=== PATIENT | female | born 1990 | race Caucasian/White ===

== ENCOUNTER 2016-04-20 16:07 | Outpatient (CLI) | payer MEDICAID ==
[2016-04-20] MEDS ORDERED: RINGERS SOLUTION,LACTATED 300 ML IV ONE (16:13)
[2016-04-20] MEDS ORDERED: OXYTOCIN/NORMAL SALINE 1,000 ML IV PRN (16:13)
[2016-04-20] MEDS ORDERED: RINGERS SOLUTION,LACTATED 1,000 ML IV PRN (16:13)
[2016-04-20 16:35] LABS: APPEARANCE,URINE TURBID; BILIRUBIN,URINE NEGATIVE (NEGATIVE); GLUCOSE, URINE NEGATIVE (NEGATIVE); KETONES,URINE NEGATIVE (NEGATIVE); LEUKOCYTE ESTERASE,URINE LARGE (NEGATIVE); NITRITE,URINE NEGATIVE (NEGATIVE); PROTEIN,URINE NEGATIVE (NEGATIVE); URINE SPECIFIC GRAVITY 1.014; UROBILINOGEN,URINE NEGATIVE mg/dL (<2.0)
[2016-04-20 16:55] LABS: URINE BARBITURATES SCREEN NEGATIVE; URINE METHADONE SCREEN NEGATIVE; URINE OPIATES LOW NEGATIVE; URINE PHENCYCLIDINE SCREEN NEGATIVE
--- NOTE | 2016-04-20 17:01 | Non Stress Test Report ---
Non Stress Test Datetime Report Generated by CPN: 04/20/2016 17:01 INDICATION Indication for Study: Ordered by Provider MONITORING Monitor Explained: Monitor Explained; Test Explained; Patient Verbalized Understanding Time on Monitor: 04/20/2016 16:17 Time off Monitor: 04/20/2016 16:55 NST Duration: 38 NST INTERVENTIONS NST Interventions: PO Hydration; Reposition Patient Physician Notified NST: H Kanu CNM BABY A: [id number] BABY A Movement : Present Contraction Frequency : none/ pt denies FHR Baseline : 140 Accelerations : 15X15 Decelerations : None Variability : Moderate 6-25bpm NST Review: Meets Criteria for Reactive NST NST Review and Verified By : Tierra Ospina RN NST Results: Reactive NST REPORT Report Trigger: Send Report
== END 2016-04-20 17:03 | disposition home or self-care (01) ==
LOC: LC 16:07
PROVIDERS: ATTEND Obstetrics & Gynecology
PROC: 4A1HXCZ Monitoring of Products of Conception, Cardiac Rate, External Approach (ICD-10-PCS; principal; 2016-04-20)
DX: O14.93 Unspecified pre-eclampsia, third trimester (principal); Z3A.39 39 weeks gestation of pregnancy
CPT/HCPCS: 59025; 80307; 81005

== ENCOUNTER 2016-04-29 22:10 | Inpatient (IN) | payer MEDICAID ==
[2016-04-29] MEDS ORDERED: ACETAMINOPHEN 325 MG TABLET PO PRN (22:39)
[2016-04-29] MEDS ORDERED: ZOLPIDEM TARTRATE 5 MG TABLET PO PRN (22:39)
[2016-04-29] MEDS ORDERED: MAG HYDROX/AL HYDROX/SIMETH SUSP 30 ML UDCUP PO PRN (22:39)
[2016-04-29] MEDS ORDERED: OXYTOCIN/NORMAL SALINE 20 UNIT/1,000 ML RTUINJ IV PRN (22:39)
[2016-04-29] MEDS ORDERED: RINGERS SOLUTION,LACTATED 300 ML IV ONE (22:39)
[2016-04-29] MEDS ORDERED: DINOPROSTONE 10 MG VAGINAL INSERT.SR PV ONE (22:39)
[2016-04-29 22:58] LABS: ABSOLUTE EOSINOPHILS # (AUTO) 0.2 10^3/uL (0.0-0.6); ABSOLUTE LYMPHOCYTES (AUTO) 2.2 10^3/uL (0.5-4.7); ABSOLUTE MONOCYTES (AUTO) 0.6 10^3/uL (0.1-1.4); ABSOLUTE NEUT (AUTO) 7.4 10^3/uL (1.7-8.2); BASOPHILS % (AUTO) 0.2 % (0-2); EOSINOPHILS % (AUTO) 2.3 % (0-6); HEMATOCRIT 32.1 % (36.0-47.0); HEMOGLOBIN 10.8 g/dL (12.0-15.5); HGB HCT DIFFERENCE 0.3; LYMPHOCYTES % (AUTO) 20.9 % (13-45); MEAN CORPUSCULAR HEMOGLOBIN 28.9 pg (27.0-33.4); MEAN CORPUSCULAR HGB CONC 33.8 g/dL (32.0-36.0); MEAN CORPUSCULAR VOLUME 86 fl (80-97); MONOCYTES % (AUTO) 5.3 % (3-13); RED BLOOD COUNT 3.75 10^6/uL (3.72-5.28); RED CELL DISTRIBUTION WIDTH 14.3 % (11.5-14.0); SEGMENTED NEUTROPHILS % (AUTO) 71.3 % (42-78); WHITE BLOOD COUNT 10.4 10^3/uL (4.0-10.5)
[2016-04-29 23:20] LABS: APPEARANCE,URINE CLOUDY; BILIRUBIN,URINE NEGATIVE (NEGATIVE); GLUCOSE, URINE NEGATIVE (NEGATIVE); KETONES,URINE NEGATIVE (NEGATIVE); LEUKOCYTE ESTERASE,URINE LARGE (NEGATIVE); NITRITE,URINE NEGATIVE (NEGATIVE); PROTEIN,URINE NEGATIVE (NEGATIVE); URINE SPECIFIC GRAVITY 1.011; UROBILINOGEN,URINE NEGATIVE mg/dL (<2.0)
[2016-04-29] MEDS ORDERED: CEPHALEXIN 500 MG CAPSULE PO SCH (23:45)
[2016-04-29] MEDS ORDERED: ESCITALOPRAM OXALATE 10 MG TABLET PO SCH (23:45)
[2016-04-29 23:47] LABS: URINE BARBITURATES SCREEN NEGATIVE; URINE METHADONE SCREEN NEGATIVE; URINE OPIATES LOW NEGATIVE; URINE PHENCYCLIDINE SCREEN NEGATIVE
[2016-04-30] MEDS: RINGERS SOLUTION,LACTATED 1,000 ML IV PRN ×2 (00:03→03:22)
[2016-04-30] MEDS ORDERED: CEPHALEXIN 500 MG CAPSULE ONE (00:53)
[2016-04-30] MEDS ORDERED: MAG HYDROX/AL HYDROX/SIMETH SUSP 30 ML UDCUP ONE (00:54)
[2016-04-30] MEDS ORDERED: DINOPROSTONE 10 MG VAGINAL INSERT.SR ONE (00:54)
[2016-04-30] MEDS ORDERED: ZOLPIDEM TARTRATE 5 MG TABLET ONE (00:54)
--- NOTE | 2016-04-30 08:01 | L&D Flow Sheet ---
LD Flowsheet Datetime Report Generated by CPN: 04/30/2016 08:00 Datetime: 04/30/2016 07:00 Stage of : Antepartum (Noris Watkins, RN) Monitor Mode: External (Noris Watkins, RN) Frequency (min): none (Noris Watkins, RN) Quality: Mild (Noris Watkins, RN) Resting Tone (Palpate): Relaxed (Noris Watkins, RN) Monitor Mode: External US (Noris Watkins, RN) FHR Baseline Rate : 135 (Noris Watkins, RN) Variability: Moderate 6-25 bpm (Noris Watkins, RN) Accelerations: 15X15 (Noris Watkins, RN) Comments: UTD if deels are present during broken strip (Noris Watkins, RN) Pain Coping: Sleeping (Noris Watkins, RN) Communication: RN at Bedside; RN Reviewed Strip (Noris Watkins, RN) Datetime: 04/30/2016 06:47 Monitor Interventions for FHR: Ultrasound Adjusted (Noris Watkins, RN) Comments: RN at bedside adjusting FHR monitor (Noris Watkins, RN) Datetime: 04/30/2016 06:30 Stage of : Antepartum (Noris Watkins, RN) Respirations: 18 (Noris Watkins, RN) Monitor Mode: External (Noris Watkins, RN) Frequency (min): irritability (Noris Watkins, RN) Quality: Mild (Noris Watkins, RN) Resting Tone (Palpate): Relaxed (Noris Watkins, RN) Monitor Mode: External US (Noris Watkins, RN) FHR Baseline Rate : 130 (Noris Watkins, RN) Variability: Minimal - Undetectable to <=5 bpm (Noris Watkins, RN) Accelerations: 15X15 (Noris Watkins, RN) Decelerations: None (Noris Watkins, RN) Pain Scale: 2 (Noris Watkins, RN) Pain Presence: Intermittent (Noris Watkins, RN) Pain Type: Cramping (Noris Watkins, RN) Pain Location: Abdomen (Noris Watkins, RN) Pain Goal: 1 (Noris Watkins RN) Pain Relief Measures: Comfort Measures (Noris Watkins RN) Pain Coping: Talking Through Contractions (Noris Watkins RN) Comfort Measures: Breathing/Relaxation; Family Support (Noris Watkins RN) Communication: RN at Bedside; RN Reviewed Strip (Noris Watkins RN) LaborFlag: Antepartum (QS system process) Datetime: 04/30/2016 06:06 I/O Interventions: Up to BR (Noris Watkins RN) Datetime: 04/30/2016 06:00 Stage of : Antepartum (Noris Watkins RN) Monitor Mode: External (Noris Watkins RN) Frequency (min): none (Noris Watkins RN) Monitor Mode: External US (Noris Watkins RN) FHR Baseline Rate : 125 (Noris Watkins RN) Variability: Moderate 6-25 bpm (Noris Watkins RN) Accelerations: 15X15 (Noris Watkins RN) Decelerations: None (Noris Watkins, RN) Communication: RN at Bedside; RN Reviewed Strip (Noris Watkins, RN) Datetime: 04/30/2016 05:39 NBP Sys/Jasmine/Mean (mmHg): 121 (QS system process) : 78 (QS system process) : 95 (QS system process) Pulse: 86 (QS system process) LaborFlag: Antepartum (QS system process) Datetime: 04/30/2016 05:30 Stage of : Antepartum (Noris Watkins, RN) Monitor Mode: External (Noris Watkins, RN) Frequency (min): irritability (Noris Watkins, RN) Quality: Mild (Noris Watkins, RN) Monitor Mode: External US (Noris Watkins, RN) FHR Baseline Rate : 130 (Noris Watkins, RN) Variability: Moderate 6-25 bpm (Noris Watkins, RN) Accelerations: 15X15 (Noris Watkins, RN) Decelerations: None (Noris Watkins, RN) Communication: RN at Bedside; RN Reviewed Strip (Noris Watkins, RN) Datetime: 04/30/2016 05:14 I/O Interventions: Up to BR (Noris Wtakins, RN) Datetime: 04/30/2016 05:00 Stage of : Antepartum (Noris Watkins, RN) Respirations: 18 (Noris Watkins, RN) Monitor Mode: External (Noris Watkins, RN) Frequency (min): irregular (Noris Watkins, RN) Quality: Mild (Noris Watkins, RN) Duration (sec): 70-120 (Noris Watkins, RN) Duration Criteria: Less than Two 120 Second Contractions (Noris Watkins, RN) Pattern: Normal: <= 5 Contractions in 10 Minutes (Noris Watkins, RN) Monitor Mode: External US (Noris Watkins, RN) FHR Baseline Rate : 130 (Noris Watkins, RN) Variability: Moderate 6-25 bpm (Noris Watkins, RN) Accelerations: 15X15 (Noris Watkins, RN) Decelerations: None (Noris Watkins, RN) Pain Scale: 2 (Noris Watkins RN) Pain Presence: Intermittent (Noris Watkins RN) Pain Type: Cramping (Noris Watkins RN) Pain Location: Abdomen (Noris Watkins RN) Pain Goal: 1 (Noris Watkisn RN) Pain Relief Measures: Comfort Measures (Noris Watkins RN) Pain Coping: Talking Through Contractions (Noris Watkins RN) Comfort Measures: Breathing/Relaxation; Family Support (Noris Watkins RN) Communication: RN at Bedside; RN Reviewed Strip (Noris Watkins RN) LaborFlag: Antepartum (QS system process) Datetime: 04/30/2016 04:30 Stage of : Antepartum (Noris Watkins RN) Monitor Mode: External (Noris Watkins RN) Frequency (min): irregular (Noris Watkins RN) Quality: Mild (Noris Watkins RN) Duration (sec): 90-120 (Noris Watkins RN) Pattern: Normal: <= 5 Contractions in 10 Minutes (Noris Watkins RN) Monitor Mode: External US (Noris Watkins RN) FHR Baseline Rate : 130 (Noris Watkins RN) Variability: Moderate 6-25 bpm (Noris Watkins RN) Accelerations: 15X15 (Noris Watkins RN) Comments: UTD if decels present during broken tracing (Noris Watkins RN) Communication: RN at Bedside; RN Reviewed Strip (Noris Watkins RN) Datetime: 04/30/2016 04:25 Monitor Interventions for FHR: Ultrasound Adjusted (Noris Watkins, RN) Comments: Rn adjusting FHR monitor (Noris Watkins, RN) Communication: RN at Bedside (Noris Watkins, RN) Datetime: 04/30/2016 04:00 Stage of : Antepartum (Noris Watkins, RN) Monitor Mode: External (Noris Watkins, RN) Frequency (min): irregular (Noris Watkins, RN) Quality: Mild (Noris Watkins, RN) Duration (sec): 60-90 (Noris Watkins, RN) Resting Tone (Palpate): Relaxed (Noris Watkins, RN) Monitor Mode: External US (Noris Watkins, RN) FHR Baseline Rate : 125 (Noris Watkins, RN) Variability: Minimal - Undetectable to <=5 bpm (Noris Watkins, RN) Accelerations: 15X15 (Noris Watkins, RN) Decelerations: None (Noris Watkins, RN) Communication: RN at Bedside; RN Reviewed Strip (Noris Watkins, RN) Datetime: 04/30/2016 03:30 Stage of : Antepartum (Noris Watkins, RN) Respirations: 18 (Noris Watkins, RN) Monitor Mode: External (Noris Watkins, RN) Frequency (min): irregular (Noris Watkins, RN) Quality: Mild (Noris Watkins, RN) Duration (sec): 70 (Noris Watkins, RN) Pattern: Normal: <= 5 Contractions in 10 Minutes (Noirs Watkins RN) Resting Tone (Palpate): Relaxed (Noris Watkins, RN) Monitor Mode: External US (Noris Watkins, RN) FHR Baseline Rate : 130 (Noris Watkins, RN) Variability: Moderate 6-25 bpm (Noris Watkins, RN) Accelerations: 15X15 (Noris Watkins, RN) Comments: UTD if decels present during broken strip (Noris Watkins, FREDRICK) Pain Scale: 1 (Noris Watkins RN) Pain Presence: Intermittent (Noris Watkins RN) Pain Type: Cramping (Noris Watkins RN) Pain Location: Abdomen (Noris Watkins, RN) Pain Relief Measures: Comfort Measures (Noris Watkins RN) Pain Coping: Talking Through Contractions (Noris Watkins RN) Comfort Measures: Breathing/Relaxation; Family Support (Noris Watkins RN) Communication: RN at Bedside; RN Reviewed Strip (Noris Watkins RN) LaborFlag: Antepartum (QS system process) Datetime: 04/30/2016 03:23 I/O Interventions: Up to BR (Noris Watkins, RN) Datetime: 04/30/2016 03:22 IV/Blood Work: New IV Bag Hung (Noris Watkins, RN) Datetime: 04/30/2016 03:07 NBP Sys/Jasmine/Mean (mmHg): 117 (QS system process) : 61 (QS system process) : 82 (QS system process) Pulse: 95 (QS system process) LaborFlag: Antepartum (QS system process) Datetime: 04/30/2016 03:00 Stage of : Antepartum (Noris Watkins, RN) Monitor Mode: External (Noris Watkins, RN) Frequency (min): x1 (Noris Watkins, RN) Quality: Mild (Noris Watkins, RN) Duration (sec): 90 (Noris Watkins, RN) Resting Tone (Palpate): Relaxed (Noris Watkins, RN) Monitor Mode: External US (Noris Watkins, RN) FHR Baseline Rate : 130 (Noris Watkins, RN) Variability: Moderate 6-25 bpm (Noris Watkins, RN) Accelerations: 15X15 (Noris Watkins, RN) Decelerations: None (Noris Watkins, RN) Communication: RN at Bedside; RN Reviewed Strip (Noris Watkins, RN) Datetime: 04/30/2016 02:37 NBP Sys/Jasmine/Mean (mmHg): 112 (QS system process) : 66 (QS system process) : 83 (QS system process) Pulse: 94 (QS system process) LaborFlag: Antepartum (QS system process) Datetime: 04/30/2016 02:30 Stage of : Antepartum (Noris Watkins, RN) Monitor Mode: External (Noris Watkins, RN) Frequency (min): x1 (Noris Watkins, RN) Quality: Mild (Noris Watkins, RN) Duration (sec): 90 (Noris Watkins, RN) Pattern: Normal: <= 5 Contractions in 10 Minutes (Noris Watkins, RN) Monitor Mode: External US (Noris Watkins, RN) FHR Baseline Rate : 120 (Noris Watkins, RN) Variability: Moderate 6-25 bpm (Noris Watkins, RN) Accelerations: 15X15 (Noris Watkins, RN) Decelerations: None (Noris Watkins, RN) Communication: RN Reviewed Strip (Noris Watkins, RN) Datetime: 04/30/2016 02:08 NBP Sys/Jasmine/Mean (mmHg): 116 (QS system process) : 71 (QS system process) : 87 (QS system process) Pulse: 95 (QS system process) LaborFlag: Antepartum (QS system process) Datetime: 04/30/2016 02:00 Stage of : Antepartum (Noris Watkins, RN) Respirations: 16 (Noris Watkins, RN) Monitor Mode: External (Noris Watkins, RN) Frequency (min): irregular (Noris Watkins, RN) Quality: Mild (Noris Watkins, RN) Duration (sec): 90 (Noris Watkins, RN) Pattern: Normal: <= 5 Contractions in 10 Minutes (Noris Watkins, RN) Monitor Mode: External US (Noris Watkins, RN) FHR Baseline Rate : 125 (Noris Watkins, RN) Variability: Moderate 6-25 bpm (Noris Watkins, RN) Accelerations: 15X15 (Noris Watkins, RN) Decelerations: None (Noris Watkins, RN) Pain Coping: Sleeping (Noris Watkins, RN) Communication: RN at Bedside; RN Reviewed Strip (Noris Watkins, RN) LaborFlag: Antepartum (QS system process) Datetime: 04/30/2016 01:37 NBP Sys/Jasmine/Mean (mmHg): 112 (QS system process) : 67 (QS system process) : 84 (QS system process) Pulse: 92 (QS system process) LaborFlag: Antepartum (QS system process) Datetime: 04/30/2016 01:30 Stage of : Antepartum (Noris Watkins, RN) Monitor Mode: External (Noris Watkins, RN) Frequency (min): irregular (Noris Watkins, RN) Quality: Mild (Noris Watkins, RN) Duration (sec): 120-180 (Noris Watkins, RN) Pattern: Normal: <= 5 Contractions in 10 Minutes (Noris Watkins, RN) Monitor Mode: External US (Noris Watkins, RN) FHR Baseline Rate : 130 (Noris Watkins, RN) Variability: Moderate 6-25 bpm (Noris Watkins, RN) Accelerations: 15X15 (Noris Watkins, RN) Communication: RN at Bedside; RN Reviewed Strip (Noris Watkins, RN) Datetime: 04/30/2016 01:13 Cervical Ripening Agents: Cervidil (Noris Watkins, RN) Datetime: 04/30/2016 01:09 Comments: tracing maternal HR, RN at bedside (Noris Watkins, RN) Analgesics/Sedatives: Ambien (mg) @ 10 (Noris Watkins, RN) Antibiotics: Other Antibiotic @ 500mg Keflex PO (Noris Watkins, RN) Antiemetics/Antacids: Maalox PO (ml) @ 30 (Noris Watkins, RN) Medication Comments: 10 mg Lexapro given PO per Dr Ricci order (Noris Watkins, RN) Datetime: 04/30/2016 01:03 I/O Interventions: Up to BR (Noris Watkins, RN) Datetime: 04/30/2016 01:00 Stage of : Antepartum (Noris Watkins, RN) Monitor Mode: External (Noris Watkins, RN) Frequency (min): irritability (Noris Watkins, RN) Resting Tone (Palpate): Relaxed (Noris Watkins, RN) Monitor Mode: External US (Noris Watkins, RN) FHR Baseline Rate : 135 (Noris Watkins, RN) Variability: Moderate 6-25 bpm (Noris Watkins, RN) Accelerations: 15X15 (Noris Watkins, RN) Decelerations: None (Noris Watkins, RN) Communication: RN Reviewed Strip (Noris Watkins, RN) Datetime: 04/30/2016 00:37 NBP Sys/Jasmine/Mean (mmHg): 104 (QS system process) : 55 (QS system process) : 77 (QS system process) Pulse: 82 (QS system process) LaborFlag: Antepartum (QS system process) Datetime: 04/30/2016 00:30 Stage of : Antepartum (Noris Watkins, RN) Respirations: 18 (Noris Watkins, RN) Monitor Mode: External (Noris Watkins, RN) Frequency (min): x1 (Noris Watkins, RN) Quality: Mild (Noris Watkins, RN) Duration (sec): 90 (Noris Watkins, RN) Resting Tone (Palpate): Relaxed (Noris Watkins, RN) Monitor Mode: External US (Noris Watkins, RN) Monitor Interventions for FHR: Ultrasound Adjusted (Noris Watkins, RN) FHR Baseline Rate : 120 (Noris Watkins, RN) Variability: Moderate 6-25 bpm (Noris Watkins, RN) Accelerations: 15X15 (Noris Watkins, RN) Pain Scale: 1 (Noris Watkins, RN) Pain Presence: Intermittent (Noris Watkins, RN) Pain Type: Cramping (Noris Watkins, RN) Pain Location: Abdomen (Noris Watkins, RN) Communication: RN at Bedside; RN Reviewed Strip (Noris Watkins, RN) LaborFlag: Antepartum (QS system process) Datetime: 04/30/2016 00:26 Monitor Interventions for FHR: Ultrasound Adjusted (Noris Watkins, RN) Datetime: 04/30/2016 00:06 Pain Scale: 1 (Noris Watkins, RN) Pain Presence: Intermittent (Noris Watkins, RN) Pain Type: Cramping (Noris Watkins, RN) Pain Location: Abdomen (Noris Watkins, RN) Pain Goal: 1 (Noris Watkins, RN) Pain Relief Measures: Comfort Measures (Noris Watkins, RN) Vaginal Bleeding: None (Noris Watkins, RN) Level of Consciousness: Fully Conscious (Noris Watkins, RN) DTR's/Clonus: DTRs 1+; No Clonus (Noris Watkins, RN) Headache: Denies (Noris Watkins, RN) Breath Sounds, Left: Clear and Equal (Noris Watkins, RN) Breath Sounds, Right: Clear and Equal (Noris Watkins, RN) Nausea/Vomiting: Present (Annotations: slight nausea) (Noris Watkins, RN) RUQ Epigastric Pain: Denies (Noris Watkins, RN) LaborFlag: Antepartum (QS system process) Datetime: 04/30/2016 00:00 Stage of : Antepartum (Noris Watkins, RN) Monitor Mode: External (Noris Watkins, RN) Frequency (min): irregular (Noris Watkins, RN) Quality: Mild (Noris Watkins RN) Duration (sec): 60-90 (Noris Watkins RN) Resting Tone (Palpate): Relaxed (Noris Watkins RN) Monitor Mode: External US (Noris Watkins RN) Monitor Interventions for FHR: Ultrasound Adjusted (Noris Watkins RN) FHR Baseline Rate : 135 (Noris Watkins RN) Variability: Moderate 6-25 bpm (Noris Watkins RN) Accelerations: 15X15 (Noris Watkins RN) Comments: UTD if decels present during broken tracing (Noris Watkins RN) Communication: RN at Bedside; RN Reviewed Strip (Noris Watkins RN) Datetime: 04/29/2016 23:49 I/O Interventions: Up to BR (Noris Watkins RN) Datetime: 04/29/2016 23:45 Dilatation (cm): 0.5 (Noris Watkins RN) Exam by: Fracnisca Watkins RN (Noris Watkins RN) Vaginal Bleeding: None (Noris Watkins RN) Cervix, Consistency: Moderate (Nrois Watkins RN) Cervix, Position: Posterior (Noris Watkins RN) Vaginal Exam Comments: Thick and High (Noris Watkins RN) Datetime: 04/29/2016 23:41 Patient Position/Activity: Right Tilt; Semi-Fowlers (Noris Watkins RN) Datetime: 04/29/2016 23:31 Stage of : Antepartum (Noris Watkins RN) Monitor Mode: External; Palpation (Noris Watkins RN) Frequency (min): x2 (Noris Watkins RN) Quality: Mild (Noris Watkins RN) Duration (sec): 70-90 (Noris Watkins RN) Resting Tone (Palpate): Relaxed (Noris Watkins RN) Comments: pt sitting up in bed for IV placement (Noris Watkins RN) Communication: RN at Bedside; RN Reviewed Strip (Noris Watkins RN) Datetime: 04/29/2016 23:30 Monitor Mode: External US (Noris Watkins, RN) Monitor Interventions for FHR: Ultrasound Adjusted (Noris Watkins, RN) FHR Baseline Rate : 135 (Noris Watkins, RN) Variability: Minimal - Undetectable to <=5 bpm (Noris Watkins, RN) Accelerations: 10X10 (Noris Watkins, RN) Comments: utd if decels present during broken tracing (Noris Watkins, RN) Datetime: 04/29/2016 23:17 Monitor Interventions for FHR: Ultrasound Adjusted (Noris Watkins, RN) Patient Position/Activity: Right Tilt; Semi-Fowlers (Noris Watkins, RN) Datetime: 04/29/2016 23:00 Stage of : Antepartum (Noris Watkins RN) Monitor Mode: External; Palpation (Noris Watkins, FREDRICK) Frequency (min): irritability (Noris Watkins, RN) Resting Tone (Palpate): Relaxed (Noris Watkins RN) Monitor Mode: External US (Noris Watkins RN) FHR Baseline Rate : 135 (Noris Watkins, RN) Variability: Moderate 6-25 bpm (Noris Watkins, RN) Accelerations: 15X15 (Noris Watkins RN) Decelerations: None (Noris Watkins RN) Instructional Method: Verbal; Patient Instructed; Family/Support Person Instructed; Verbalized Understanding (Noris Watkins RN) Plan of Care: Plan of Care Discussed (Noris Watkins RN) Unit Routine: [place] to Room; Call Estrada; Bed; Unit Personnel (Noris Watkins RN) Communication: RN at Bedside; RN Reviewed Strip (Noris Watkins RN) Datetime: 04/29/2016 22:59 Comments: patient sitting up in bed for IV placement (Noris Watkins RN) Datetime: 04/29/2016 22:40 IV/Blood Work: Labs Drawn (Sariah Grisel, RN) Datetime: 04/29/2016 22:38 NBP Sys/Jasmine/Mean (mmHg): 118 (QS system process) : 57 (QS system process) : 79 (QS system process) Pulse: 114 (QS system process) LaborFlag: Antepartum (QS system process)
[2016-04-30] MEDS ORDERED: MISOPROSTOL 0.1 MG TABLET PO ONE (09:48)
[2016-04-30] MEDS ORDERED: MISOPROSTOL 0.1 MG TABLET ONE (09:48)
[2016-04-30] MEDS ORDERED: MISOPROSTOL 0.1 MG TABLET PV ONE (09:49)
--- NOTE | 2016-04-30 10:00 | L&D Flow Sheet ---
LD Flowsheet Datetime Report Generated by CPN: 04/30/2016 10:00 Datetime: 04/30/2016 09:57 Patient Position/Activity: Left Tilt; Low Fowlers (Amisha Vitrano, RN) Datetime: 04/30/2016 09:56 Medication Comments: Cytotec 25 mcg PV, Cytotec 25 mcg PO (Amisha Vitrano, RN) Datetime: 04/30/2016 09:47 I/O Interventions: Up to BR (Amisha Vitrano, RN) Datetime: 04/30/2016 09:46 Communication Comments: Unable to place fuentes bulb. Orders received for Cytotec 25 mcg PO and Cytotec 25 mcg PV x1 now. (Amisha Vitrano, RN) Datetime: 04/30/2016 09:31 Provider Reviewed Strip: Yes (Amisha Vitrano, RN) Communication: RN at Bedside; RN Reviewed Strip; Provider at Bedside (Amisha Vitrano, RN) Datetime: 04/30/2016 09:29 NBP Sys/Jasmine/Mean (mmHg): 126 (QS system process) : 78 (QS system process) : 96 (QS system process) Pulse: 89 (QS system process) LaborFlag: Antepartum (QS system process) Datetime: 04/30/2016 09:27 IV/Blood Work: IV Infusing per Order (Amisha Vitrano, RN) Patient Position/Activity: Left Tilt; Semi-Fowlers (Amisha Vitrano, RN) Patient Care Comments: LR restarted at 125 mL/hour (Amisha Vitrano, RN) Datetime: 04/30/2016 08:16 Patient Care Comments: IV saline locked and covered; linens and gown provided; pt instructed on ordering breakfast. (Amisha Holt RN) Datetime: 04/30/2016 08:13 Instructional Method: Verbal; Patient Instructed; Family/Support Person Instructed; Verbalized Understanding (Amisha Holt RN) Plan of Care: Plan of Care Discussed (Amisha Holt RN) Teaching Comments: Reviewed POC, all pt questions answered (Amisha Holt RN) Datetime: 04/30/2016 08:12 NBP Sys/Jasmine/Mean (mmHg): 106 (QS system process) : 60 (QS system process) : 76 (QS system process) Pulse: 80 (QS system process) Respirations: 16 (Amisha Holt RN) LaborFlag: Antepartum (QS system process) Datetime: 04/30/2016 08:10 Medication Comments: Cervidil d/c (Amisha Vitrano, RN) Datetime: 04/30/2016 08:05 Communication Comments: New POC and orders received from Yuliet Bobby CNM. Orders received to d/c Cervidil now. Pt may be up to shower and eat breakfast. Afterwards provider to place fuentes bulb and at that time start Pitocin 20 units in 1000 mL NS at 2 mU/min increasing by 2 mU/min q 15 to a max of 20 mU/min or until an adequate pattern of labor is established. (Amisha Vitrano, RN) Datetime: 04/30/2016 08:01 Monitor Interventions for UA: [place] Adjusted (Amisha Vitrano, RN) Datetime: 04/30/2016 08:00 Temperature (F): 97.5 (Amisha Vitrano, RN) Temperature (C): 36.4 (QS system process) Temperature Route: Oral (Amisha Vitrano, RN) Monitor Mode: External (Amisha Vitrano, RN) Frequency (min): None (Amisha Vitrano, RN) Resting Tone (Palpate): Relaxed (Amisha Vitrano, RN) Contraction Comments: Pt denies (Amisha Vitrano, RN) Monitor Mode: External US (Amisha Vitrano, RN) Monitor Interventions for FHR: Ultrasound Adjusted (Amisha Vitrano, RN) FHR Baseline Rate : 140 (Amisha Vitrano, RN) Variability: Moderate 6-25 bpm (Amisha Vitrano, RN) Accelerations: 15X15 (Amisha Vitrano, RN) Decelerations: None (Amisha Vitrano, RN) Level of Consciousness: Fully Conscious (Amisha Vitrano, RN) DTR's/Clonus: DTRs 2+; No Clonus (Amisha Vitrano, RN) Headache: Denies (Amisha Vitrano, RN) Breath Sounds, Left: Clear and Equal (Amisha Vitrano, RN) Breath Sounds, Right: Clear and Equal (Amisha Vitrano, RN) Nausea/Vomiting: Denies (Amisha Vitrano, RN) RUQ Epigastric Pain: Denies (Amisha Vitrano, RN) Patient Position/Activity: Right Tilt; Semi-Fowlers (Amisha Vitrano, RN) LaborFlag: Antepartum (QS system process)
--- NOTE | 2016-04-30 12:00 | L&D Flow Sheet ---
LD Flowsheet Datetime Report Generated by CPN: 04/30/2016 12:00 Datetime: 04/30/2016 11:29 NBP Sys/Jasmine/Mean (mmHg): 99 (QS system process) : 55 (QS system process) : 70 (QS system process) Pulse: 88 (QS system process) LaborFlag: Antepartum (QS system process) Datetime: 04/30/2016 11:00 Monitor Mode: External; Palpation (Amisha Vitrano, RN) Frequency (min): Irregular (Amisha Vitrano, RN) Quality: Mild (Amisha Vitrano, RN) Resting Tone (Palpate): Relaxed (Amisha Vitrano, RN) Contraction Comments: Irritability (Amisha Vitrano, RN) Monitor Mode: External US (Amisha Vitrano, RN) FHR Baseline Rate : 140 (Amisha Vitrano, RN) Variability: Moderate 6-25 bpm (Amisha Vitrano, RN) Accelerations: 10X10 (Amisha Vitrano, RN) Decelerations: None (Amisha Vitrano, RN) Datetime: 04/30/2016 10:59 NBP Sys/Jasmine/Mean (mmHg): 109 (QS system process) : 55 (QS system process) : 77 (QS system process) Pulse: 88 (QS system process) Respirations: 16 (Amisha Vitrano, RN) LaborFlag: Antepartum (QS system process) Datetime: 04/30/2016 10:48 Monitor Interventions for FHR: Ultrasound Adjusted (Amisha Vitrano, RN) Datetime: 04/30/2016 10:41 Patient Position/Activity: Left Lateral (Amisha Vitrano, RN) Datetime: 04/30/2016 10:30 Monitor Mode: External (Amisha Vitrano, RN) Frequency (min): None (Amisha Vitrano, RN) Resting Tone (Palpate): Relaxed (Amisha Vitrano, RN) Monitor Mode: External US (Amisha Vitrano, RN) FHR Baseline Rate : 135 (Amisha Vitrano, RN) Variability: Moderate 6-25 bpm (Amisha Vitrano, RN) Accelerations: 15X15 (Amisha Vitrano, RN) Decelerations: None (Amisha Vitrano, RN) Datetime: 04/30/2016 10:29 NBP Sys/Jasmine/Mean (mmHg): 118 (QS system process) : 72 (QS system process) : 90 (QS system process) Pulse: 91 (QS system process) Respirations: 16 (Amisha Vitrano, RN) LaborFlag: Antepartum (QS system process) Datetime: 04/30/2016 10:08 Hygiene: Underpad Changed (Amsiha Vitrano, RN) I/O Interventions: Clear Liquids Given (Amisha Vitrano, RN) Patient Care Comments: Pt resting comfortably, denies further needs (Amisha Vitrano, RN) Datetime: 04/30/2016 10:05 Pain Presence: Intermittent (Amisha Vitrano, RN) Pain Type: Cramping (Amisha Vitrano, RN) Pain Assessment Comments: Warm blanket provided (Amisha Vitrano, RN) LaborFlag: Antepartum (QS system process) Datetime: 04/30/2016 10:00 NBP Sys/Jasmine/Mean (mmHg): 119 (QS system process) : 60 (QS system process) : 82 (QS system process) Pulse: 102 (QS system process) Respirations: 16 (Amisha Vitrano, RN) Monitor Mode: External; Palpation (Amisha Vitrano, RN) Frequency (min): None (Amisha Vitrano, RN) Resting Tone (Palpate): Relaxed (Amisha Vitrano, RN) Monitor Mode: External US (Amisha Vitrano, RN) FHR Baseline Rate : 135 (Amisha Vitrano, RN) Variability: Moderate 6-25 bpm (Amisha Vitrano, RN) Accelerations: 15X15 (Amisha Vitrano, RN) Decelerations: None (Amisha Vitrano, RN) LaborFlag: Antepartum (QS system process)
--- NOTE | 2016-04-30 14:01 | L&D Flow Sheet ---
LD Flowsheet Datetime Report Generated by CPN: 04/30/2016 14:00 Datetime: 04/30/2016 13:59 NBP Sys/Jasmine/Mean (mmHg): 125 (QS system process) : 71 (QS system process) : 91 (QS system process) Pulse: 93 (QS system process) LaborFlag: Antepartum (QS system process) Datetime: 04/30/2016 13:34 NBP Sys/Jasmine/Mean (mmHg): 128 (QS system process) : 76 (QS system process) : 94 (QS system process) Pulse: 85 (QS system process) LaborFlag: Antepartum (QS system process) Datetime: 04/30/2016 13:32 Monitor Interventions for UA: [place] Adjusted (Amisha Vitrano, RN) Monitor Interventions for FHR: Ultrasound Adjusted (Amisha Vitrano, RN) IV/Blood Work: IV Infusing per Order; New IV Bag Hung (Amisha Vitrano, RN) Datetime: 04/30/2016 13:21 I/O Interventions: Up to BR (Amisha Vitrano, RN) Datetime: 04/30/2016 13:01 Patient Care Comments: Pt stable, denies needs (Amisha Vitrano, RN) Datetime: 04/30/2016 13:00 Monitor Mode: External; Palpation (Amisha Vitrano, RN) Frequency (min): 2-4 (Amisha Vitrano, RN) Quality: Mild (Amisha Vitrano, RN) Duration (sec): 60-90 (Amisha Vitrano, RN) Duration Criteria: Less than Two 120 Second Contractions (Amisha Vitrano, RN) Pattern: Normal: <= 5 Contractions in 10 Minutes (Amisha Vitrano, RN) Resting Tone (Palpate): Relaxed (Amisha Vitrano, RN) Monitor Mode: External US (Amisha Vitrano, RN) FHR Baseline Rate : 135 (Amisha Vitrano, RN) Variability: Moderate 6-25 bpm (Amisha Vitrano, RN) Accelerations: 15X15 (Amisha Vitrano, RN) Decelerations: None (Amisha Vitrano, RN) Datetime: 04/30/2016 12:59 NBP Sys/Jasmine/Mean (mmHg): 118 (QS system process) : 65 (QS system process) : 85 (QS system process) Pulse: 92 (QS system process) Respirations: 16 (Amisha Vitrano, RN) LaborFlag: Antepartum (QS system process) Datetime: 04/30/2016 12:57 Monitor Interventions for UA: [place] Adjusted (Amisha Vitrano, RN) Monitor Interventions for FHR: Ultrasound Adjusted (Amisha Vitrano, RN) Patient Position/Activity: Right Lateral (Amisha Vitrano, RN) Datetime: 04/30/2016 12:30 Monitor Mode: External (Amisha Vitrano, RN) Frequency (min): 2-5 (Amisha Vitrano, RN) Quality: Mild (Amisha Vitrano, RN) Duration (sec): 50-70 (Amisha Vitrano, RN) Duration Criteria: Less than Two 120 Second Contractions (Amisha Vitrano, RN) Pattern: Normal: <= 5 Contractions in 10 Minutes (Amisha Vitrano, RN) Resting Tone (Palpate): Relaxed (Amisha Vitrano, RN) Monitor Mode: External US (Amisha Vitrano, RN) FHR Baseline Rate : 135 (Amisha Vitrano, RN) Variability: Moderate 6-25 bpm (Amisha Vitrano, RN) Accelerations: 15X15 (Amisha Vitrano, RN) Decelerations: None (Amisha Vitrano, RN) Datetime: 04/30/2016 12:29 NBP Sys/Jasmine/Mean (mmHg): 119 (QS system process) : 64 (QS system process) : 84 (QS system process) Pulse: 91 (QS system process) Respirations: 16 (Amisha Vitrano, RN) LaborFlag: Antepartum (QS system process) Datetime: 04/30/2016 12:06 Temperature (F): 97.7 (Amisha Vitrano, RN) Temperature (C): 36.5 (QS system process) Temperature Route: Oral (Amisha Vitrano, RN) LaborFlag: Antepartum (QS system process) Datetime: 04/30/2016 12:00 Monitor Mode: External; Palpation (Amisha Faraano, RN) Frequency (min): Irritability (Amisha Faraano, RN) Quality: Mild (Amisha Vitrano, RN) Resting Tone (Palpate): Relaxed (Amisha Faraano, RN) Monitor Mode: External US (Amisha Yanet, RN) FHR Baseline Rate : 140 (Amisha Vitrano, RN) Variability: Moderate 6-25 bpm (Amisha Vitrano, RN) Accelerations: 15X15 (Amisha Vitrano, RN) Decelerations: None (Amisha Vitrano, RN)
[2016-04-30] MEDS ORDERED: OXYTOCIN/NORMAL SALINE 20 UNIT/1,000 ML RTUINJ ONE (14:29)
--- NOTE | 2016-04-30 16:01 | L&D Flow Sheet ---
LD Flowsheet Datetime Report Generated by CPN: 04/30/2016 16:00 Datetime: 04/30/2016 15:45 Pitocin (milliunit): Pitocin Increased to (milliunits) @ 8 (Amisha Holt RN) I/O Interventions: Clear Liquids Given (Amisha Holt RN) Patient Care Comments: Pt in rocking chair with family at bedside, clear liquids provided. Denies further needs. (Amisha Holt RN) Datetime: 04/30/2016 15:31 NBP Sys/Jasmine/Mean (mmHg): 130 (QS system process) : 72 (QS system process) : 94 (QS system process) Pulse: 109 (QS system process) Respirations: 16 (Amisha Vitrano, RN) LaborFlag: Antepartum (QS system process) Datetime: 04/30/2016 15:03 NBP Sys/Jasmine/Mean (mmHg): 123 (QS system process) : 68 (QS system process) : 89 (QS system process) Pulse: 96 (QS system process) Respirations: 16 (Amisha Vitrano, RN) LaborFlag: Antepartum (QS system process) Datetime: 04/30/2016 15:00 Pitocin (milliunit): Pitocin Increased to (milliunits) @ 6 (Amisha Vitrano, RN) Datetime: 04/30/2016 14:45 Monitor Interventions for FHR: Ultrasound Adjusted (Amisha Vitrano, RN) Comments: Unable to assess d/t broken tracing (Amisha Vitrano, RN) Pitocin (milliunit): Pitocin Increased to (milliunits) @ 4 (Amisha Vitrano, RN) Datetime: 04/30/2016 14:42 Patient Care Comments: Up to rocking chair (Amisha Vitrano, RN) Datetime: 04/30/2016 14:40 Hygiene: Underpad Changed (Amisha Vitrano, RN) Datetime: 04/30/2016 14:39 I/O Interventions: Up to BR (Amisha Vitrano, RN) Datetime: 04/30/2016 14:35 Monitor Interventions for FHR: Ultrasound Adjusted (Amisha Vitrano, RN) Datetime: 04/30/2016 14:30 Monitor Mode: External (Amisha Vitrano, RN) Frequency (min): 1-7 (Amisha Vitrano, RN) Quality: Mild (Amisha Vitrano, RN) Duration (sec): 50-70 (Amisha Vitrano, RN) Duration Criteria: Less than Two 120 Second Contractions (Amisha Vitrano, RN) Pattern: Normal: <= 5 Contractions in 10 Minutes (Amisha Holt, RN) Resting Tone (Palpate): Relaxed (Amisha Holt, RN) Monitor Mode: External US (Amisha Holt, RN) Monitor Interventions for FHR: Ultrasound Adjusted (Amisha Holt, RN) FHR Baseline Rate : 135 (Amisha Faraano, RN) Variability: Moderate 6-25 bpm (Amisha Faraano, RN) Accelerations: 15X15 (Amisha Yanet, RN) Decelerations: None (Amishanayely Holt, RN) Pitocin (milliunit): Pitocin Started (milliunits) @ 2; Pitocin 20 Units in 1000ml NS (Amisha Holt, RN) Datetime: 04/30/2016 14:29 NBP Sys/Jasmine/Mean (mmHg): 123 (QS system process) : 73 (QS system process) : 92 (QS system process) Pulse: 93 (QS system process) Respirations: 16 (Amisha Holt RN) Instructional Method: Verbal; Patient Instructed; Family/Support Person Instructed; Verbalized Understanding (Amisha Holt RN) Plan of Care: Plan of Care Discussed (Amisha Holt RN) LaborFlag: Antepartum (QS system process) Datetime: 04/30/2016 14:07 Comments: Broken tracing d/t pt sitting up eating; Yuliet Bobby CNM on unit and aware. (Amisha Holt, FREDRICK) Datetime: 04/30/2016 14:06 Patient Care Comments: Meal provided (Amishanayely Holt, FREDRICK) Datetime: 04/30/2016 14:02 Dilatation (cm): 2.5 (Amisha Holt RN) Effacement (%): 80 (Amisha Holt RN) Station: -1 (Amisha Holt RN) Exam by: Yuliet Bobby CNM (Amisha Holt RN) Communication Comments: Pt may have lunch per Yuliet Bobby CNM. Start Pitocin after pt meal per previous order. Epidural PRN. (Amisha Holt RN) Datetime: 04/30/2016 14:00 Monitor Mode: External; Palpation (Amisha Vitrano, RN) Frequency (min): 3-6 (Amisha Vitrano, RN) Quality: Mild (Amisha Vitrano, RN) Duration (sec): 50-90 (Amisha Vitrano, RN) Duration Criteria: Less than Two 120 Second Contractions (Amisha Vitrano, RN) Pattern: Normal: <= 5 Contractions in 10 Minutes (Amisha Vitrano, RN) Resting Tone (Palpate): Relaxed (Amisha Vitrano, RN) Monitor Mode: External US (Amisha Vitrano, RN) FHR Baseline Rate : 130 (Amisha Vitrano, RN) Variability: Moderate 6-25 bpm (Amisha Vitrano, RN) Accelerations: 10X10 (Amisha Vitrano, RN) Decelerations: None (Amisha Vitrano, RN)
[2016-04-30] MEDS ORDERED: FENTANYL/BUPIVACAINE/NS/PF 200 MCG/100 ML RTUINJ EPI ONE (16:32)
[2016-04-30] MEDS ORDERED: EPHEDRINE SULFATE INJ 50 MG/1 ML AMPULE ONE (16:32)
[2016-04-30] MEDS ORDERED: BUPIVACAINE HCL 0.25 % INJ/PF (2.5 MG/1 ML) 30 ML VIAL ONE (16:32)
--- NOTE | 2016-04-30 16:33 | L&D Progress Notes ---
PROGRESS NOTES Datetime Report Generated by CPN: 04/30/2016 16:33 PROGRESS NOTE Impression: Normal Progression of Labor; Reassuring Heart Rate Procedures: Artificial ROM; Sterile Vag Exam Plan: Continue Present Management; Induction Plan Other: pt may have epidural Informed Consent Obtained: Vaginal Delivery Vital Signs : Reviewed Comment: AROM, thick mec May have epdiural Anticipate VAGINAL EXAM Dilatation: 3 Dilatation: 1 Effacement: 80 Station: -1 Contractions: 2-3 Contractions: irregular MEMBRANES Membranes: Ruptured Membranes: Intact Amniotic Fluid Color: Meconium, Heavy FETUS A FHR - Baseline: 155 Monitoring: External US Variability: Moderate 6-25bpm Accelerations: 15X15 Decelerations: None FHR Category: Category I : 41.0 Estimated Weight (gm): 3500 Presentation: Vertex SIGNATURE SIGNATURE: [id number] SIGNATURE: [id number] Assignment: Sumaya Goodson MD Signature: with User ID: [email or web address] : with User ID: Tee
--- NOTE | 2016-04-30 18:01 | L&D Flow Sheet ---
LD Flowsheet Datetime Report Generated by CPN: 04/30/2016 18:00 Datetime: 04/30/2016 17:59 NBP Sys/Jasmine/Mean (mmHg): 119 (QS system process) : 78 (QS system process) : 94 (QS system process) Pulse: 109 (QS system process) Datetime: 04/30/2016 17:45 Stage of : Recovery (Amisha Vitrano, RN) NBP Sys/Jasmine/Mean (mmHg): 126 (QS system process) : 58 (QS system process) : 83 (QS system process) Pulse: 97 (QS system process) Respirations: 16 (Amisha Vitrano, RN) Pain Scale: 0 (Amisha Vitrano, RN) Pain Presence: None/Denies (Amisha Vitrano, RN) Pain Type: N/A (Amisha Vitrano, RN) Datetime: 04/30/2016 17:40 Stage of : Recovery (Amisha Vitrano, RN) Datetime: 04/30/2016 17:35 Stage 2 Comments: viable baby girl, see delivery summary (Amisha Vitrano, RN) Datetime: 04/30/2016 17:32 Dilatation (cm): 10.0 (Amisha Vitrano, RN) Effacement (%): 100 (Amisha Vitrano, RN) Station: 2 (Amisha Faraano, RN) Exam by: Yuliet Bobby CNM (Amisha Faraano, RN) I/O Interventions: [place] Discontinued (Amisha Vitrano, RN) Datetime: 04/30/2016 17:31 Communication Comments: Yuliet Bobby CNM at bedside and notified of SVE (Amisha Vitrano, RN) Datetime: 04/30/2016 17:30 NBP Sys/Jasmine/Mean (mmHg): 140 (QS system process) : 62 (QS system process) : 89 (QS system process) Pulse: 111 (QS system process) Respirations: 17 (Amisha Faraano, RN) Monitor Mode: External; Palpation (Amisha Vitrano, RN) Frequency (min): 1-3 (Amisha Yanet, RN) Quality: Moderate to Strong (Amisha Yanet, RN) Duration (sec): 50-90 (Amisha Yanet, RN) Duration Criteria: Less than Two 120 Second Contractions (Amisha Yanet, RN) Pattern: Normal: <= 5 Contractions in 10 Minutes (Amisha Yanet, RN) Resting Tone (Palpate): Relaxed (Amisha Holt RN) Monitor Mode: External US (Amisha Holt RN) FHR Baseline Rate : 135 (Amisha Yanet, RN) Variability: Minimal - Undetectable to <=5 bpm (Amisha Yanet, RN) Comments: Broken tracing, RN adjusting] (Amishanayely Holt, RN) Dilatation (cm): 7.5 (Amisha Yanet, RN) Effacement (%): 90 (Amisha Yanet, RN) Station: 0 (Amisha Holt, RN) Exam by: Brendan Holt RN (Amisha Holt, RN) Pitocin (milliunit): Pitocin Remains (milliunits) @ 10 (Amishanayely Holt RN) LaborFlag: Antepartum (QS system process) Datetime: 04/30/2016 17:29 Pain Coping: Crying (Amisha Holt RN) Pain Assessment Comments: Crying, urge to push (Amisha Holt RN) LaborFlag: Antepartum (QS system process) Datetime: 04/30/2016 17:22 Communication Comments: H. Kanu, CNM on unit, reviewed SVE. No new orders, continue current POC. (Amisha Vitrano, RN) Datetime: 04/30/2016 17:20 Monitor Interventions for UA: [place] Adjusted (Amisha Vitrano, RN) Patient Care Comments: Warm blankets given (Amisha Vitrano, RN) Datetime: 04/30/2016 17:18 Monitor Interventions for FHR: Ultrasound Adjusted (Amisha Vitrano, RN) Datetime: 04/30/2016 17:16 Patient Position/Activity: Left Lateral; Peanut Ball (Amisha Vitrano, RN) Datetime: 04/30/2016 17:15 Monitor Mode: External (Amihsa Vitrano, RN) Frequency (min): 1-3 (Amisha Vitrano, RN) Quality: Moderate (Amisha Vitrano, RN) Duration (sec): 50-80 (Amisha Vitrano, RN) Duration Criteria: Less than Two 120 Second Contractions (Amisha Vitrano, RN) Pattern: Normal: <= 5 Contractions in 10 Minutes (Amisha Vitrano, RN) Resting Tone (Palpate): Relaxed (Amisha Vitrano, RN) Monitor Mode: External US (Amisha Vitrano, RN) FHR Baseline Rate : 150 (Amisha Vitrano, RN) Variability: Minimal - Undetectable to <=5 bpm (Amisha Vitrano, RN) Accelerations: None (Amisha Vitrano, RN) Decelerations: Early (Amisha Vitrano, RN) Pitocin (milliunit): Pitocin Remains (milliunits) @ 10 (Amisha Vitrano, RN) Datetime: 04/30/2016 17:13 Pain Assessment Comments: Pt complaining of pressure (Amisha Vitrano, RN) Dilatation (cm): 5.0 (Amisha Vitrano, RN) Effacement (%): 80 (Amisha Vitrano, RN) Station: -1 (Amisha Vitrano, RN) Exam by: Brendan Holt RN (Amisha Vitrano, RN) LaborFlag: Antepartum (QS system process) Datetime: 04/30/2016 17:08 NBP Sys/Jasmine/Mean (mmHg): 111 (QS system process) : 66 (QS system process) : 84 (QS system process) Pulse: 99 (QS system process) Respirations: 17 (Amisha Vitrano, RN) LaborFlag: Antepartum (QS system process) Datetime: 04/30/2016 17:04 NBP Sys/Jasmine/Mean (mmHg): 110 (QS system process) : 59 (QS system process) : 79 (QS system process) Pulse: 93 (QS system process) LaborFlag: Antepartum (QS system process) Datetime: 04/30/2016 17:00 Monitor Mode: External; Palpation (Amisha Holt, FREDRICK) Frequency (min): 1-3 (Amisha Holt, FREDRICK) Quality: Moderate (Amisha Holt, RN) Duration (sec): 50-80 (Amisha Holt, RN) Duration Criteria: Less than Two 120 Second Contractions (Amisha Holt, RN) Pattern: Normal: <= 5 Contractions in 10 Minutes (Amisha Holt, RN) Resting Tone (Palpate): Relaxed (Amisha Holt, RN) Monitor Mode: External US (Amisha Holt, RN) Monitor Interventions for FHR: Ultrasound Adjusted (Amisha Holt, RN) FHR Baseline Rate : 150 (Amisha Holt, RN) Variability: Moderate 6-25 bpm (Amisha Holt, RN) Accelerations: None (Amisha Holt, RN) Decelerations: None (Amisha Holt, RN) Pitocin (milliunit): Pitocin Increased to (milliunits) @ 10 (Amisha Holt RN) IV/Blood Work: IV Infusing per Order (Amisha Vitrano, RN) Patient Care Comments: 125 mL/hour (Amisha Vitrano, RN) Datetime: 04/30/2016 16:58 NBP Sys/Jasmine/Mean (mmHg): 119 (QS system process) : 56 (QS system process) : 80 (QS system process) Pulse: 95 (QS system process) LaborFlag: Antepartum (QS system process) Datetime: 04/30/2016 16:56 I/O Interventions: [place] Cath Inserted (Amisha Vitrano, RN) Patient Care Comments: Clear urine draining (Amisha Vitrano, RN) Datetime: 04/30/2016 16:53 Anesthesia Plans: Epidural (Amisha Vitrano, RN) Epidural Procedure Other: Pump Started (Amisha Vitrano, RN) Anesthesia Level Check: T10- Umbilicus (Amisha Vitrano, RN) Datetime: 04/30/2016 16:52 NBP Sys/[place]asm[place]/Mean (mmHg): 124 (QS system process) : 58 (QS system process) : 81 (QS system process) Pulse: 95 (QS system process) Respirations: 16 (Amisha Faraano, RN) Monitor Interventions for UA: [place] Adjusted (Amisha Yanet, RN) Monitor Interventions for FHR: Ultrasound Adjusted (Amisha Yanet, RN) Patient Position/Activity: Left Tilt; Low Fowlers (Amisha Faraano, RN) LaborFlag: Antepartum (QS system process) Datetime: 04/30/2016 16:51 NBP Sys/Jasmine/Mean (mmHg): 121 (QS system process) : 56 (QS system process) : 81 (QS system process) Pulse: 100 (QS system process) LaborFlag: Antepartum (QS system process) Datetime: 04/30/2016 16:50 NBP Sys/Jasmine/Mean (mmHg): 137 (QS system process) : 67 (QS system process) : 91 (QS system process) Pulse: 116 (QS system process) LaborFlag: Antepartum (QS system process) Datetime: 04/30/2016 16:49 NBP Sys/Jasmine/Mean (mmHg): 137 (QS system process) : 70 (QS system process) : 95 (QS system process) Pulse: 100 (QS system process) LaborFlag: Antepartum (QS system process) Datetime: 04/30/2016 16:48 NBP Sys/Jasmine/Mean (mmHg): 127 (QS system process) : 65 (QS system process) : 89 (QS system process) Pulse: 99 (QS system process) Anesthesia Plans: Epidural (Amisha Vitrano, RN) Epidural Procedure: Loading Dose (Amisha Vitrano, RN) LaborFlag: Antepartum (QS system process) Datetime: 04/30/2016 16:47 NBP Sys/Jasmine/Mean (mmHg): 120 (QS system process) : 82 (QS system process) : 97 (QS system process) Pulse: 110 (QS system process) Anesthesia Plans: Epidural (Amisha Vitrano, RN) Epidural Procedure: Cath Placed (Amisha Vitrano, RN) LaborFlag: Antepartum (QS system process) Datetime: 04/30/2016 16:46 Anesthesia Plans: Epidural (Amisha Vitrano, RN) Epidural Procedure: Test Dose (Amisha Vitrano, RN) Datetime: 04/30/2016 16:45 Pulse: 108 (QS system process) SpO2 (%): 100 (QS system process) Monitor Mode: External (Amisha Vitrano, RN) Frequency (min): 1-3.5 (Amisha Vitrano, RN) Quality: Mild/Moderate (Amisha Vitrano, RN) Duration (sec): 60-80 (Amisha Vitrano, RN) Duration Criteria: Less than Two 120 Second Contractions (Amisha Vitrano, RN) Pattern: Normal: <= 5 Contractions in 10 Minutes (Amisha Vitrano, RN) Resting Tone (Palpate): Relaxed (Amisha Vitrano, RN) Monitor Mode: External US (Amisha Vitrano, RN) FHR Baseline Rate : 150 (Amisha Vitrano, RN) Variability: Moderate 6-25 bpm (Amisha Vitrano, RN) Accelerations: 15X15 (Amisha Vitrano, RN) Decelerations: None (Amisha Vitrano, RN) Comments: Broken tracing d/t pt position for epidural, RN remains at bedside adjusting US. (Amisha Vitrano, RN) Pitocin (milliunit): Pitocin Remains (milliunits) @ 8 (Amisha Vitrano, RN) LaborFlag: Antepartum (QS system process) Datetime: 04/30/2016 16:38 Procedure Verify: Correct Patient Identity; Correct Side and Site are Marked; Accurate Procedure Consent Form; Agreement on Procedure to be Done; Correct Patient Position; Relevant Images and Results are Properly Labeled and Displayed; Addressed Need to Administer Antibiotics or Fluids for Irrigation; Safety Precautions Based on Patient History or Medication Use (Amishanayely Holt, RN) Anesthesia Plans: Epidural (Amishanayely Holt, RN) Epidural Positioning: Sitting (Amishanayely Holt RN) Anesthesia Comments: Dr. Horner at bedside (Amisha Yanet, RN) Datetime: 04/30/2016 16:35 Anesthesia Plans: Epidural (Amisha Vitrano, RN) Epidural Positioning: Sitting (Amisha Vitrano, RN) Datetime: 04/30/2016 16:33 Procedure Verify: Correct Patient Identity; Correct Side and Site are Marked; Accurate Procedure Consent Form; Agreement on Procedure to be Done; Correct Patient Position; Relevant Images and Results are Properly Labeled and Displayed; Addressed Need to Administer Antibiotics or Fluids for Irrigation; Safety Precautions Based on Patient History or Medication Use (Amisha Holt RN) Anesthesia Plans: Epidural (Amisha Holt RN) Epidural Positioning: Sitting (Amisha Holt RN) Anesthesia Comments: Dr. Horner called for epidural, provider on way to unit (Amisha Holt RN) Datetime: 04/30/2016 16:30 NBP Sys/Jasmine/Mean (mmHg): 126 (QS system process) : 60 (QS system process) : 87 (QS system process) Pulse: 97 (QS system process) Respirations: 17 (Amisha Holt RN) Monitor Mode: External (Amisha Holt, RN) Frequency (min): 1-3 (Amisha Holt, RN) Quality: Mild/Moderate (Amishanayely Holt, RN) Duration (sec): 50-90 (Amishanayely Holt, RN) Duration Criteria: Less than Two 120 Second Contractions (Amisha Holt, RN) Pattern: Normal: <= 5 Contractions in 10 Minutes (Amisha Yanet, RN) Resting Tone (Palpate): Relaxed (Amisha Holt, RN) Monitor Mode: External US (Amisha Holt RN) FHR Baseline Rate : 145 (Amishanayely Holt, RN) Variability: Moderate 6-25 bpm (Amisha Yanet, RN) Accelerations: 15X15 (Amisha Yanet, RN) Decelerations: None (Amishanayely Holt, RN) Pitocin (milliunit): Pitocin Remains (milliunits) @ 8 (Amisha Holt RN) LaborFlag: Antepartum (QS system process) Datetime: 04/30/2016 16:26 Membrane Status: Ruptured (Amisha Holt RN) Membranes Rupture Method: Artificial (Amisha Holt RN) Amniotic Fluid Color: Heavy Meconium (Amisha Holt RN) Amniotic Fluid Amount: Moderate (Amisha Holt RN) Patient Position/Activity: Right Tilt; Semi-Fowlers (Amisha Holt, FREDRICK) Datetime: 04/30/2016 16:23 Provider Reviewed Strip: Yes (Amisha Holt RN) Instructional Method: Verbal; Patient Instructed; Family/Support Person Instructed; Verbalized Understanding (Amisha Holt RN) Plan of Care: Plan of Care Discussed (Amisha Holt RN) Communication: RN at Bedside; Provider at Bedside (Amisha Holt RN) Datetime: 04/30/2016 16:21 IV/Blood Work: IV Bolus Started (Amisha Holt RN) Procedure Verify: Correct Patient Identity; Correct Side and Site are Marked; Accurate Procedure Consent Form; Agreement on Procedure to be Done; Relevant Images and Results are Properly Labeled and Displayed; Addressed Need to Administer Antibiotics or Fluids for Irrigation; Safety Precautions Based on Patient History or Medication Use (Amisha Holt RN) Anesthesia Plans: Epidural (Amisha Holt RN) Communication Comments: Yuleit Bobby CNM notified of SVE and pt request for medication. Orders to start bolus for epidural and provider will AROM pt. (Amisha Holt RN) Datetime: 04/30/2016 16:19 Dilatation (cm): 3.0 (Amisha Holt RN) Effacement (%): 80 (Amisha Holt RN) Station: -1 (Amisha Holt RN) Exam by: Brendan Holt RN (Amisha Holt RN) Datetime: 04/30/2016 16:15 Monitor Mode: External (Amisha Vitrano, RN) Frequency (min): 1-2 (Amisha Vitrano, RN) Quality: Mild/Moderate (Amisha Vitrano, RN) Duration (sec): 50-60 (Amisha Vitrano, RN) Duration Criteria: Less than Two 120 Second Contractions (Amisha Vitrano, RN) Pattern: Normal: <= 5 Contractions in 10 Minutes (Amisha Vitrano, RN) Resting Tone (Palpate): Relaxed (Amisha Vitrano, RN) Monitor Mode: External US (Amisha Vitrano, RN) FHR Baseline Rate : 145 (Amisha Vitrano, RN) Variability: Moderate 6-25 bpm (Amisha Vitrano, RN) Accelerations: 15X15 (Amisha Vitrano, RN) Decelerations: None (Amisha Vitrano, RN) Pitocin (milliunit): Pitocin Remains (milliunits) @ 8 (Amisha Vitrano, RN) Datetime: 04/30/2016 16:12 Pain Presence: Intermittent (Amisha Vitrano, RN) Pain Type: Cramping; Contraction (Amisha Vitrano, RN) Pain Coping: Requesting Pain Medication or Epidural (Amisha Vitrano, RN) I/O Interventions: Up to BR (Amisha Vitrano, RN) LaborFlag: Antepartum (QS system process) Datetime: 04/30/2016 16:01 NBP Sys/Jasmine/Mean (mmHg): 120 (QS system process) : 60 (QS system process) : 83 (QS system process) Pulse: 104 (QS system process) Respirations: 17 (Amisha Vitrano, RN) Temperature (F): 98.2 (Amisha Vitrano, RN) Temperature (C): 36.8 (QS system process) Temperature Route: Oral (Amisha Vitrano, RN) LaborFlag: Antepartum (QS system process) Datetime: 04/30/2016 16:00 Monitor Mode: External; Palpation (Amisha Vitrano, RN) Frequency (min): 1-3 (Amisha Vitrano, RN) Quality: Mild/Moderate (Amisha Vitrano, RN) Duration (sec): 50-60 (Amisha Vitrano, RN) Duration Criteria: Less than Two 120 Second Contractions (Amisha Vitrano, RN) Pattern: Normal: <= 5 Contractions in 10 Minutes (Amisha Holt RN) Resting Tone (Palpate): Relaxed (Amisha Holt RN) Monitor Mode: External US (Amisha Holt RN) FHR Baseline Rate : 145 (Amisha Holt RN) Variability: Moderate 6-25 bpm (Amisha Holt RN) Accelerations: 15X15 (Amisha Holt RN) Decelerations: None (Amisha Holt RN) Pitocin (milliunit): Pitocin Remains (milliunits) @ 8 (Amisha Holt RN)
[2016-04-30] MEDS ORDERED: ZOLPIDEM TARTRATE 5 MG TABLET PO PRN (18:33)
[2016-04-30] MEDS ORDERED: MEASLES,MUMPS&RUBELLA VACC/PF 0.5 ML VIAL SUBCUT PRN (18:33)
[2016-04-30] MEDS ORDERED: DIBUCAINE 1% OINTMENT 28 GM TP PRN (18:33)
[2016-04-30] MEDS ORDERED: BENZOCAINE/MENTHOL AEROSOL SPRAY 56 ML TOP PRN (18:33)
[2016-04-30] MEDS ORDERED: OXYTOCIN/NORMAL SALINE 1,000 ML IV PRN (18:33)
[2016-04-30] MEDS ORDERED: DIPH/PERTUSS(ACELL)/TETANUS VAC/PF 0.5 ML SYR (>=10YO) IM PRN (18:33)
[2016-04-30] MEDS ORDERED: FLUCONAZOLE 100 MG TABLET ONE (19:08)
[2016-04-30] MEDS ORDERED: IBUPROFEN 800 MG TABLET ONE (19:09)
[2016-04-30] MEDS: IBUPROFEN 800 MG TABLET PO SCH (19:11)
[2016-04-30] MEDS ORDERED: FLUCONAZOLE 100 MG TABLET PO ONE (19:15)
[2016-04-30] MEDS ORDERED: MAGNESIUM HYDROXIDE SUSP 30 ML UDCUP PO PRN (20:29)
[2016-04-30] MEDS ORDERED: NA PHOS,M-B/NA PHOS,DI-BA (ADULT) 133 ML ENEMA PR PRN (20:29)
[2016-04-30] MEDS ORDERED: PROMETHAZINE HCL 25 MG SUPP.RECT PR PRN (20:29)
[2016-04-30] MEDS ORDERED: PROMETHAZINE HCL INJ 25 MG/1 ML VIAL IV PRN (20:29)
[2016-04-30] MEDS ORDERED: PROMETHAZINE HCL 25 MG TABLET PO PRN (20:29)
[2016-04-30] MEDS ORDERED: ACETAMINOPHEN 650 MG SUPP.RECT PR PRN (20:29)
[2016-04-30] MEDS ORDERED: GLYCERIN/WITCH HAZEL LEAF 1 EACH MED..PAD TP PRN (20:29)
[2016-04-30] MEDS ORDERED: PSEUDOEPHEDRINE HCL 30 MG TABLET PO PRN (20:29)
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
[2016-04-30] MEDS ORDERED: FERROUS SULFATE 325 MG TABLET PO ONE (20:42)
[2016-04-30] MEDS ORDERED: DOCUSATE SODIUM 100 MG CAPSULE ONE ×2 (20:42→20:54)
[2016-04-30] MEDS ORDERED: HYDROCODONE/ACETAMINOPHEN 5-325 MG TABLET ONE (20:42)
[2016-04-30] MEDS ORDERED: ESCITALOPRAM OXALATE 10 MG TABLET PO ONE (21:30)
[2016-04-30] MEDS: FAMOTIDINE 20 MG TABLET PO SCH (21:39)
--- NOTE | 2016-04-30 22:01 | L&D Flow Sheet ---
LD Flowsheet Datetime Report Generated by CPN: 04/30/2016 22:00 Datetime: 04/30/2016 20:17 Pain Scale: 3 (Fide Vogt RN) Pain Presence: Constant (Fide Vogt ) Pain Type: Ache (Fide Vogt RN) Pain Location: Coccyx (Fide Vogt RN) Pain Relief Measures: Pain Medication Given; Comfort Measures (Fide Vogt ) Datetime: 04/30/2016 19:44 NBP Sys/Jasmine/Mean (mmHg): 117 (QS system process) : 60 (QS system process) : 81 (QS system process) Pulse: 114 (QS system process) Respirations: 18 (Fide Julessmann, RN) Datetime: 04/30/2016 19:30 Level of Consciousness: Fully Conscious (Fide Dharasmann, RN) DTR's/Clonus: DTRs 2+; No Clonus (Fide Dharasmann, RN) Headache: Denies (Fide Kossmann, RN) Breath Sounds, Left: Clear and Equal (Fide Dharasmann, RN) Breath Sounds, Right: Clear and Equal (Fide Dharasmann, RN) Nausea/Vomiting: Denies (Fide Dharasmann, RN) RUQ Epigastric Pain: Denies (Fide Dharasmann, RN) Datetime: 04/30/2016 19:29 NBP Sys/Jasmine/Mean (mmHg): 115 (QS system process) : 62 (QS system process) : 82 (QS system process) Pulse: 106 (QS system process) Respirations: 18 (Fide Vogt, RN) Pain Scale: 0 (Fide Vogt RN) Pain Presence: None/Denies (Fide Vogt RN) Pain Type: N/A (Fide Vogt, RN) Datetime: 04/30/2016 19:14 NBP Sys/Jasmine/Mean (mmHg): 121 (QS system process) : 64 (QS system process) : 85 (QS system process) Pulse: 116 (QS system process) Respirations: 16 (Amisha Vitrano, RN) Datetime: 04/30/2016 19:00 Stage of : Recovery (Amisha Faraano, RN) NBP Sys/Jasmine/Mean (mmHg): 143 (QS system process) : 83 (QS system process) : 102 (QS system process) Pulse: 112 (QS system process) Respirations: 16 (Amisha Vitrano, RN) Pain Scale: 0 (Amisha Holt, RN) Pain Presence: None/Denies (Amishanayely Holt, RN) Pain Type: N/A (Amisha Vitrano, RN) Datetime: 04/30/2016 18:45 Stage of : Recovery (Amisha Vitrano, RN) Pain Scale: 0 (Amisha Vitrano, RN) Pain Presence: None/Denies (Amisha Vitrano, RN) Pain Type: N/A (Amisha Vitrano, RN) Datetime: 04/30/2016 18:44 NBP Sys/Jasmine/Mean (mmHg): 127 (QS system process) : 62 (QS system process) : 87 (QS system process) Pulse: 98 (QS system process) Respirations: 16 (Amisha Vitrano, RN) Datetime: 04/30/2016 18:32 NBP Sys/Jasmine/Mean (mmHg): 128 (QS system process) : 82 (QS system process) : 93 (QS system process) Pulse: 96 (QS system process) Respirations: 16 (Amisha Vitrano, RN) Datetime: 04/30/2016 18:30 Stage of : Recovery (Amisha Vitrano, RN) NBP Sys/Jasmine/Mean (mmHg): 144 (QS system process) : 117 (QS system process) : 128 (QS system process) Pulse: 142 (QS system process) Pain Scale: 0 (Amisha Vitrano, RN) Pain Presence: None/Denies (Amisha Vitrano, RN) Pain Type: N/A (Amisha Vitrano, RN) Datetime: 04/30/2016 18:15 Stage of : Recovery (Amisha Vitrano, RN) Pain Scale: 0 (Amisha Vitrano, RN) Pain Presence: None/Denies (Amisha Vitrano, RN) Pain Type: N/A (Amisha Vitrano, RN) Datetime: 04/30/2016 18:14 NBP Sys/Jasmine/Mean (mmHg): 132 (QS system process) : 63 (QS system process) : 91 (QS system process) Pulse: 99 (QS system process) Respirations: 16 (Amisha Vitrano, RN) Datetime: 04/30/2016 18:05 Stage of : Recovery (Amisha Vitrano, RN) Datetime: 04/30/2016 18:00 Stage of : Recovery (Amisha Holt RN) Pain Scale: 0 (Amisha Holt RN) Pain Presence: None/Denies (Amisha Holt RN) Pain Type: N/A (Amisha Holt RN)
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
[2016-04-30] MEDS: DIPHENHYDRAMINE HCL 25 MG CAPSULE PO PRN (22:48)
[2016-05-01] MEDS: HYDROCODONE/ACETAMINOPHEN 5-325 MG TABLET PO PRN ×5 (00:32→21:10)
[2016-05-01] MEDS: IBUPROFEN 800 MG TABLET PO SCH ×3 (05:07→22:09)
--- NOTE | 2016-05-01 07:01 | L&D Flow Sheet ---
LD Flowsheet Datetime Report Generated by CPN: 05/01/2016 07:00 Datetime: 04/30/2016 22:18 NBP Sys/Jasmine/Mean (mmHg): 124 (QS system process) : 69 (QS system process) : 89 (QS system process) Pulse: 103 (QS system process) Respirations: 16 (Fide Vogt RN) Temperature (F): 98.0 (Fide Vogt RN) Temperature (C): 36.7 (QS system process) Temperature Route: Oral (Fide Vogt RN) Pain Scale: 0 (Fide Vogt RN) Pain Presence: None/Denies (Fide Vogt RN) Pain Type: N/A (Fide Vogt RN) Datetime: 04/30/2016 20:17 Pain Scale: 3 (Fide Dharaangelique, ) Pain Presence: Constant (Fide Dharaangelique, ) Pain Type: Ache (Fide Dharaangelique, ) Pain Location: Coccyx ([facility], ) Pain Relief Measures: Pain Medication Given; Comfort Measures ([facility], ) Datetime: 04/30/2016 19:44 NBP Sys/Jasmine/Mean (mmHg): 117 (QS system process) : 60 (QS system process) : 81 (QS system process) Pulse: 114 (QS system process) [facility]pirations: [facility] Datetime: 04/30/2016 19:30 Level of Consciousness: Fully Conscious (Fide Kossmann, RN) DTR's/Clonus: DTRs 2+; No Clonus (Fidealanis Vogt, RN) Headache: Denies (Fide Vogt, RN) Breath Sounds, Left: Clear and Equal (Fide Vogt, RN) Breath Sounds, Right: Clear and Equal (Fide Vogt, RN) Nausea/Vomiting: Denies (Fide Vogt, RN) RUQ Epigastric Pain: Denies (Fidealanis Vogt, RN) Datetime: 04/30/2016 19:29 NBP Sys/Jasmine/Mean (mmHg): 115 (QS system process) : 62 (QS system process) : 82 (QS system process) Pulse: 106 (QS system process) Respirations: 18 (Fide Vogt RN) Pain Scale: 0 (Fide Vogt RN) Pain Presence: None/Denies (Fide Vogt, RN) Pain Type: N/A (Fide Vogt, FREDRICK) Datetime: 04/30/2016 19:14 NBP Sys/Jasmine/Mean (mmHg): 121 (QS system process) : 64 (QS system process) : 85 (QS system process) Pulse: 116 (QS system process) Respirations: 16 (Amisha Holt RN) Datetime: 04/30/2016 19:00 Stage of : Recovery (Amisha Holt RN) NBP Sys/Jasmine/Mean (mmHg): 143 (QS system process) : 83 (QS system process) : 102 (QS system process) Pulse: 112 (QS system process) Respirations: 16 (Amisha Holt RN) Pain Scale: 0 (Amisha Holt RN) Pain Presence: None/Denies (Amisha Holt RN) Pain Type: N/A (Amisha Holt RN)
[2016-05-01 07:13] LABS: HEMOGLOBIN 9.8 g/dL (12.0-15.5); HGB HCT DIFFERENCE -0.6; MEAN CORPUSCULAR HEMOGLOBIN 28.5 pg (27.0-33.4); MEAN CORPUSCULAR HGB CONC 32.7 g/dL (32.0-36.0); MEAN CORPUSCULAR VOLUME 87 fl (80-97); RED BLOOD COUNT 3.45 10^6/uL (3.72-5.28); RED CELL DISTRIBUTION WIDTH 14.6 % (11.5-14.0); WHITE BLOOD COUNT 10.4 10^3/uL (4.0-10.5)
[2016-05-01] MEDS: DIPHENHYDRAMINE HCL 25 MG CAPSULE PO PRN (07:38)
[2016-05-01] MEDS ORDERED: FLUCONAZOLE 100 MG TABLET PO ONE ×2 (10:00→14:00)
[2016-05-01] MEDS ORDERED: ESCITALOPRAM OXALATE 10 MG TABLET PO SCH ×2 (10:00→22:00)
[2016-05-01] MEDS: PRENATAL VITAMIN W-O CA NO5/FE FUMARATE/FA CAPSULE PO SCH (10:37)
[2016-05-01] MEDS: DOCUSATE SODIUM 100 MG CAPSULE PO SCH ×2 (10:37→17:06)
[2016-05-01] MEDS: FERROUS SULFATE 325 MG TABLET PO SCH ×2 (10:38→17:06)
[2016-05-01] MEDS: SENNOSIDES/DOCUSATE 8.6-50 MG 1 EACH TABLET PO SCH (10:38)
--- NOTE | 2016-05-01 11:31 | PDOC PROGRESS REPORT ---
Subjective-OB Subjective: Post Delivery Day:1 26 year old. itching from norco, will switch to percocet and alternate to motrin, discussed meds and . States lochia is stable, states cramping especially with nursing. Voiding without difficulty. Physical Exam (OB) Vital Signs: Temp Pulse Resp BP Pulse Ox 97.7 F 102 H 16 117/70 99 05/01/16 08:20 05/01/16 08:20 05/01/16 08:20 05/01/16 08:20 05/01/16 08:20 Intake & Output 04/30/16 05/01/16 05/02/16 06:59 06:59 06:59 Weight 101.3 kg - Lochia Lochia Amount: Small 10-25 ml Lochia Color: Rubra/Red - Abdomen Flatus Presence: Present Fundal Description: Firm Fundal Height: 1/u - 2/u Objective-Diagnostic Laboratory: 05/01/16 07:07 05/01/16 07:07 WBC 10.4 RBC 3.45 L Hgb 9.8 L Hct 30.0 L MCV 87 MCH 28.5 MCHC 32.7 RDW 14.6 H Plt Count 210 Assessment and Plan(PN) - Assessment and Plan (1) Vaginal delivery Is this a current diagnosis for this admission?: YesPlan: routine pp care hydrocortisone reviewed mechanism of medications and , suggested against sedating antihistamines. (2) Acute blood loss anemia Is this a current diagnosis for this admission?: YesPlan: ferrous sulfate increase dietary iron - Time Spent with Patient Time with patient: Less than 15 minutes Critical Time spent with patient: Less than 15 minutes Medications reviewed and adjusted accordingly: Yes - Disposition Anticipated Discharge: Home Within: within 24 hours
[2016-05-01] MEDS ORDERED: TRIAMCINOLONE ACETONIDE 0.1% CREAM 15 GM TOP PRN (11:32)
[2016-05-01] MEDS: FAMOTIDINE 20 MG TABLET PO SCH ×2 (12:57→22:08)
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
[2016-05-02] MEDS: IBUPROFEN 800 MG TABLET PO SCH ×2 (05:28→13:43)
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
--- NOTE | 2016-05-02 06:16 | L&D Care Plan ---
LD CARE PLANS Datetime Report Generated by CPN: 05/02/2016 06:16 Datetime: 04/30/2016 00:17 Pain State: Risk For (Noris Watkins RN) Related To: Labor and Delivery Process; Treatment and Procedures; Post (Noris Watkins RN) Goal(s): Patients Pain will be Assessed and Managed; Patient will Verbalize Adequate Relief of Pain or the Ability to [place] with Current Pain (Noris Watkins RN) Interventions: Assess Pain Severity on Scale of 0 (None) to 5 (Severe); Assess Type, Location and Intensity of Pain Each Time Client Reports Discomfort and Notify Provider if Unusal Pain Develops; Encourage Proper Breathing and Relaxation Techniques; Offer Alternatives Such as Repositioning, Calm Environment, Massages, Diversional Activities, Ice Pack, Splinting, and Ambulation; Administer Analgesics as Ordered; Assist with Epidural Placement as Appropriate; Evaluate Therapeutic Effectiveness of Medication and Treatments (Noris Watkins RN) Outcome: Patient will Report Absence or Relief of Pain Consistent with Established Pain Goal (Noris Watkins RN) Outcome: Patient will have a Decrease in Signs and Symptoms of Discomfort (Noris Watkins RN) Outcome: Pain will be Controlled During Procedures (Noris Watkins RN) Anxiety State: Risk For (Noris Watkins RN) Related To: Labor and Delivery Process; Fear of Unknown; Situational Crisis; Medical Interventions; Significant Life Event (Noris Watkins RN) Goal(s): Patient will have Decreased Anxiety and be able to Function at Acceptable Levels (Noris Watkins RN) Interventions: Assess Verbal and Nonverbal Behavioral Indicators of Anxiety; Assist Patient to Identify and Verbalize Symptoms of Anxiety; Identify and Demonstrate Techniques to Control Anxiety; Assist Patient with Coping Mechanisms to Manage Anxiety; Provide Theraputic Touch for the Patient; Explain to Patient, Using a Calm Reassuring Approach and Nonmedical Terms, All Activities, Procedures, and Concerns; Instruct Patient and Family about Post Discharge Care, Limitations, Symptoms to Report and Resources Available (Noris Watkins RN) Outcome: Patient will Identify, Verbalize and Demonstrate Techniques to Control Anxiety (Noris Watkins RN) Outcome: Patient's Posture, Facial Expressions, Gestures and Activity Level will Reflect Decreased Anxiety (Noris Watkins RN) Outcome: Patient will Verbalize a Sense of Control and/or Acceptance of the Situation (Noris Watkins RN) Outcome: Patient will Identify and Utilize Support Person (Noris Watkins RN) Knowledge Deficit State: Risk For (Noris Watkins RN) Related To: Treatment and Procedures; Impending Alterations in Family Dynamics; Feeding and Infant Care; Community Resources and Available Support Mechanisms (Noris Watkins RN) Goal(s): Patient will Accurately Verbalize Understanding of Plan of Care and Treatment; Patient and Family will Accurately Verbalize Understanding of the Disease Process (Noris Watkins RN) Interventions: Assess Motivation and Willingness of Patient/Family to Learn; Assess Preferred Learning Mode: One to One Instruction, Reading, Videos, Group Discussion or Demonstration; Assess Barriers to Learning: Pain, Emotional State, Language Barrier, Cognitive Impairment, Visual or Hearing Deficits; Assess Patient and Family Knowledge of Disease Process, Medications and Treatment; Discuss Therapy and/or Treatment Options, Describe Rationale Behind Management, Therapy and Treatment Recommendations; Instruct Patient and Family on Signs and Symptoms to Report; Instruct Patient and Family on Medication Effects and Side Effects; Provide Appropriate and Timely Education Using Multiple Techniques; Provide Patient and Family with Support Group Information and Resources; Give Clear and Thorough Explanations and Demonstrations (Noris Watkins RN) Outcome: Patient and Family will Verbalize Understanding of Condition, Treatment and Signs and Symptoms to Report (Noris Watkins RN) Outcome: Patient will Identify Perceived Learning Needs and Express Motivation to Learn (Noris Watkins RN) Outcome: Patient will Verbalize Understanding of Desired Content, and/or Performs Desired Skill Prior to Discharge (Noris Watkins RN) Infection State: Risk For (Noris Watkins RN) Related To: Prolonged Labor or Induction; Premature/Prolonged Rupture of Membranes; Invasive Procedures (Noris Watkins RN) Goal(s): The Patient will be Free of Infection, Vital Signs Stable and Lab Work within Normal Parameters (Noris Watkins RN) Interventions: Instruct and Reinforce Proper Handwashing, Hygiene, and Care Techniques to Patient and Family; Monitor Vital Signs; Monitor Patient for the Following Signs of Infection: Fever, Abdominal Tenderness, Unusual Discharge; Monitor Aminiotic Fluid, Urine and Lochia for Color and Odor; Observe Wounds, Incisions and Invasive Line Sites for Redness, Drainage and Edema; Assess IV Sites per Hospital Policy; Monitor Lab and Test Results and Notify Provider of Abnormal Findings; Assess Nutritional Status and Promote Good Nutrition (Noris Watkins RN) Outcome: Patient will Remain Free of Infection (Noris Watkins RN) Outcome: Infection will be Recognized Early to Allow for Prompt Treatment (Noris Watkins RN) Outcome: Patient will have Vital Signs Within Expected Range (Noris Watkins RN)
[2016-05-02 09:17] VITALS: BP 127/69
[2016-05-02] MEDS: PRENATAL VITAMIN W-O CA NO5/FE FUMARATE/FA CAPSULE PO SCH (09:23)
[2016-05-02] MEDS: DOCUSATE SODIUM 100 MG CAPSULE PO SCH (09:23)
[2016-05-02] MEDS: FERROUS SULFATE 325 MG TABLET PO SCH (09:23)
[2016-05-02] MEDS: SENNOSIDES/DOCUSATE 8.6-50 MG 1 EACH TABLET PO SCH (09:25)
[2016-05-02] MEDS: FAMOTIDINE 20 MG TABLET PO SCH (09:29)
--- NOTE | 2016-05-02 09:31 | PDOC DISCHARGE SUMMARY ---
Final Diagnosis Discharge Date: 05/02/16 - Final Diagnosis (1) Vaginal delivery Is this a current diagnosis for this admission?: Yes (2) Acute blood loss anemia Is this a current diagnosis for this admission?: Yes Discharge Data - Discharge Medication Home Medications: Cephalexin Monohydrate [Keflex 250 mg Capsule] 1 tab PO DAILY 04/20/16 Escitalopram Oxalate [Lexapro 10 mg Tablet] 1 tab PO DAILY 04/20/16 Promethazine HCl 1 tab PO DAILY 04/29/16 Docusate Sodium [Colace 100 mg Capsule] 100 mg PO BID #60 capsule 05/02/16 Ferrous Sulfate [Feosol 325 mg Tablet] 325 mg PO BID #60 tablet 05/02/16 Fluconazole [Diflucan 100 mg Tablet] 150 mg PO DAILY #1 tablet 05/02/16 Ibuprofen [Motrin 800 mg Tablet] 800 mg PO Q8 #90 tablet 05/02/16 Oxycodone HCl/Acetaminophen [Percocet 5-325 mg Tablet] 1 - 2 tab PO ASDIR PRN # 15 tablet 05/02/16 Triamcinolone Acetonide [Aristocort 0.1% Cream] 1 applic TOP BIDP PRN #0 tube Gestational Age: 41.0 Reason(s) for Admission: Induction of Labor Procedures: NST Intrapartum Procedure(s): Spontaneous Vaginal Delivery - [place] Data Baby 1 Female at 1 minute: 9 at 5 minutes: 9 Weight: 3060 kg Home with Mother: Yes Complications: No - Diagnosis Test Laboratory: Temp Pulse Resp BP Pulse Ox 97.6 F 98 18 127/69 H 100 05/02/16 08:35 05/02/16 08:35 05/02/16 08:35 05/02/16 08:35 05/02/16 08:35 04/29/16 04/29/16 05/01/16 22:31 22:43 07:07 RBC 3.75 3.45 L Hgb 10.8 L 9.8 L Hct 32.1 L 30.0 L Urine Opiates Screen NEGATIVE - Discharge information/Instructions Discharge Activity: Activity As Tolerated, Pelvic Rest, No tub bath Discharge Diet: Regular Disposition: HOME, SELF-CARE Follow up with: [facility] in: 4, Weeks
[2016-05-02] MEDS ORDERED: FLUCONAZOLE 100 MG TABLET PO SCH (10:00)
== END 2016-05-02 14:22 | disposition home or self-care (01) | DRG 775 ==
LOC: LR 22:10 → EEVIPCON 22:10 → 2S 04-30 22:35
PROVIDERS: ADMIT Obstetrics & Gynecology; ATTEND Obstetrics & Gynecology
PROC: 4A1HXCZ Monitoring of Products of Conception, Cardiac Rate, External Approach (ICD-10-PCS; 2016-04-29)
PROC: 10E0XZZ Delivery of Products of Conception, External Approach (ICD-10-PCS; principal; 2016-04-30)
PROC: 3E0P7GC Introduction of Other Therapeutic Substance into Female Reproductive, Via Natural or Artificial Opening (ICD-10-PCS; 2016-04-30)
PROC: 10907ZC Drainage of Amniotic Fluid, Therapeutic from Products of Conception, Via Natural or Artificial Opening (ICD-10-PCS; 2016-04-30)
DX: O48.0 Post-term pregnancy (principal); D62 Acute posthemorrhagic anemia; O99.02 Anemia complicating childbirth; O99.344 Other mental disorders complicating childbirth; O99.334 Smoking (tobacco) complicating childbirth; F31.9 Bipolar disorder, unspecified; F41.9 Anxiety disorder, unspecified; F17.210 Nicotine dependence, cigarettes, uncomplicated; O77.0 Labor and delivery complicated by meconium in amniotic fluid; O62.3 Precipitate labor; Z79.899 Other long term (current) drug therapy; Z88.8 Allergy status to other drugs, medicaments and biological substances; Z88.6 Allergy status to analgesic agent; Z91.040 Latex allergy status; Z3A.41 41 weeks gestation of pregnancy; Z37.0 Single live birth
CPT/HCPCS: 36415; 80307; 81005; 85025; 85027; 86592; 86850; 86900; 86901; C1726; J2590; J3490

== ENCOUNTER 2017-01-10 15:28 | Emergency (ER) | payer SELFPAY ==
[2017-01-10 15:35] VITALS: BP 132/75
[2017-01-10] MEDS ORDERED: DEXAMETHASONE SOD PHOS INJ 10 MG/1 ML VIAL IM ONE (15:54)
--- NOTE | 2017-01-10 15:58 | ER Document Report ---
ED Skin Rash/Insect Bite/Abscs - General Chief Complaint: Skin Problem Stated Complaint: SKIN ISSUE Time Seen by Provider: 01/10/17 15:42 Mode of Arrival: Ambulatory Information source: Patient Notes: 26-year-old female presents to ED for complaint of eczema flareup about a week that is not getting better. TRAVEL OUTSIDE OF THE [place] IN LAST 30 DAYS: No - HPI Patient complains to provider of: Skin rash/lesion Onset: Last week - Has a history of eczema this is a new flareup Onset/Duration: Intermittent Quality of pain: Burning Severity: Moderate Pain Level: 3 Skin Character: Other - Eczema Quality of rash: Itchy, Painful Identify cause: Yes - Eczema Similar symptoms previously: Yes Recently seen / treated by doctor: No - Related Data Allergies/Adverse Reactions: citric acid [Citric Acid] Allergy (Verified 01/10/17 15:50) codeine [Codeine] Allergy (Verified 01/10/17 15:50) latex Allergy (Verified 01/10/17 15:50) red dye [Red Dye] Allergy (Verified 01/10/17 15:50) Home Medications: Current Home Medications Diazepam [Valium] 5 mg PO PRN PRN 01/10/17 [History] Past Medical History - General Information source: Patient - Social History Smoking Status: Current Every Day Smoker Cigarette use (# per day): Yes - Half pack a day Smoking Education Provided: Yes - Less than 2 minutes Frequency of alcohol use: Occasional Drug Abuse: None 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 with: Spouse/Significant other Family History: Arthritis, CAD, CVA, Hyperlipidemia, Hypertension Patient has suicidal ideation: No Patient has homicidal ideation: No - Past Medical History Cardiac Medical History: Reports: None Pulmonary Medical History: Reports: None EENT Medical History: Reports: None Neurological Medical History: Reports: None Endocrine Medical History: Reports: None Renal/ Medical History: Reports: None Malignancy Medical History: Reports: None GI Medical History: Reports: None Musculoskeltal Medical History: Reports None Skin Medical History: Reports Hx Eczema Psychiatric Medical History: Reports: Hx Depression Traumatic Medical History: Reports: None Infectious Medical History: Reports: None Surgical Hx: Negative Past Surgical History: Reports: None - Immunizations Immunizations up to date: Yes Hx Diphtheria, Pertussis, Tetanus Vaccination: Yes Review of Systems - Review of Systems Constitutional: No symptoms reported EENT: No symptoms reported Cardiovascular: No symptoms reported Respiratory: No symptoms reported Gastrointestinal: No symptoms reported Genitourinary: No symptoms reported Female Genitourinary: No symptoms reported Musculoskeletal: No symptoms reported Skin: Rash, Other - Eczema flareup to face neck arms abdomen chest Hematologic/Lymphatic: No symptoms reported Neurological/Psychological: No symptoms reported -: Yes All other systems reviewed and negative Physical Exam - Vital signs Vitals: Temp Pulse Resp BP Pulse Ox 98.4 F 100 18 132/75 H 100 01/10/17 15:32 01/10/17 15:32 01/10/17 15:32 01/10/17 15:32 01/10/17 15:32 Interpretation: Normal - General General appearance: Appears well, Alert - HEENT Head: Normocephalic, Atraumatic Eyes: Normal Pupils: PERRL - Respiratory Respiratory status: No respiratory distress Chest status: Nontender Breath sounds: Normal Chest palpation: Normal - Cardiovascular Rhythm: Regular Heart sounds: Normal auscultation Murmur: No - Abdominal Inspection: Normal Distension: No distension Bowel sounds: Normal Tenderness: Nontender Organomegaly: No organomegaly - Back Back: Normal, Nontender - Extremities General upper extremity: Normal inspection, Nontender, Normal color, Normal ROM , Normal temperature General lower extremity: Normal inspection, Nontender, Normal color, Normal ROM , Normal temperature, Normal weight bearing. No: Vijaya's sign - Neurological Neuro grossly intact: Yes Cognition: Normal Orientation: AAOx4 [place] Coma Scale Eye Opening: Spontaneous Nicholas Coma Scale Verbal: Oriented Nicholas Coma Scale Motor: Obeys Commands [place] Coma Scale Total: 15 Speech: Normal Motor strength normal: LUE, RUE, LLE, RLE Sensory: Normal - Psychological Associated symptoms: Normal affect, Normal mood - Skin Skin Temperature: Warm Skin Moisture: Dry Skin Color: Normal Skin irregularity: Rash Location of irregularity: Generalized Character of irregularity: Erythematous Irregularity with: Scaling, Inflammation, Rough texture-sand paper Course - Re-evaluation Re-evalutation: 01/10/17 16:02 She states she is having eczema reaction for the last week states that she has stress and the stress brings on the eczema than the eczema makes the stress worse so that makes the eczema worse. States she does not have a doctor at this time as she does not have insurance but she is by started job next week. 01/10/17 16:03 Will write prescription of prednisone and Elocon and give her a shot of Decadron before discharge in her home. - Vital Signs Vital signs: Temp Pulse Resp BP Pulse Ox 98.4 F 100 18 132/75 H 100 01/10/17 15:32 01/10/17 15:32 01/10/17 15:32 01/10/17 15:32 01/10/17 15:32 Discharge - Discharge Clinical Impression: Eczema Qualifiers: Eczema type: unspecified Qualified Code(s): L30.9 - Dermatitis, unspecified Condition: Stable Disposition: HOME, SELF-CARE Instructions: Family Physicians / Practices Additional Instructions: Atopic Dematitis (Eczema) You have atopic dermatitis, commonly called eczema. This is a chronic allergic skin condition. It often occurs in families with asthma and hay fever. The skin develops patches of redness, itching and scaling. Eczema often affects the back of the neck, back of the legs, and front of the arms. In children it affects the back of the knees, front of the elbows, and the cheeks. Itching is the main symptom. Eczema can be triggered by dryness, heat, sweating, and detergents or soap. Scratching makes the rash worse. Food or skin allergy can cause eczema. Emotional stress may also be a factor. Symptoms may get better or worse spontaneously. Generally, the treatment consists of: (1) avoid hot-water baths, (2) avoid using soap on your skin, (3) apply a cortisone cream as needed, and (4) use antihistamines for itching. For severe episodes, oral cortisone medication may be required. Call the doctor if you get worse despite treatment, or if signs of infection occur -- such as spreading redness, red streaks, swollen glands, swelling, or fever. Try Eucerin cream mixed with vitamin E oil and applying a thin layer twice a day. STEROID MEDICATION: You have been given a medicine of the cortisone/steroid class. This medication is used to control inflammation or allergy. It is usually only given for a short period of time, until the acute process subsides. There are usually no side effects from short-term use of cortisone-like medications. Some persons feel an increased sense of well-being and are not sleepy at bedtime. Long-term use of cortisone medications is best avoided, unless required for a severe condition. If your condition does not remit, or relapses after the course of corticosteroid medication, you should consult your physician. Prescriptions: Mometasone Furoate [Elocon] 15 gm TP DAILY #15 cream..g. Prednisone [Deltasone 10 mg Tablet] 10 mg PO ASDIR PRN #21 tablet PRN Reason: Forms: Elevated Blood Pressure, Smoking Cessation Education Referrals: [facility] [Provider Group] - Follow up as needed
== END 2017-01-10 16:25 | disposition home or self-care (01) ==
LOC: ER 15:28
DX: L30.9 Dermatitis, unspecified (principal); F43.9 Reaction to severe stress, unspecified; F17.210 Nicotine dependence, cigarettes, uncomplicated; Z71.6 Tobacco abuse counseling; Z91.018 Allergy to other foods; Z88.5 Allergy status to narcotic agent; Z91.040 Latex allergy status; Z91.048 Other nonmedicinal substance allergy status
CPT/HCPCS: 99283; 96372; J1100

== ENCOUNTER 2017-02-10 21:53 | Emergency (ER) | payer SELFPAY ==
[2017-02-10] MEDS ORDERED: METHYLPREDNISOLONE INJ 125 MG/2 ML SDV IV ONE (23:07)
[2017-02-10] MEDS ORDERED: DIPHENHYDRAMINE HCL 50 MG/ML VIAL IV ONE (23:07)
[2017-02-10] MEDS ORDERED: NORMAL SALINE 1000 ML 1,000 ML IV ONE (23:07)
--- NOTE | 2017-02-10 23:08 | ER Document Report ---
HPI - HPI Patient complains to provider of: skin rash Onset: Other - 3 days Onset/Duration: Worse Quality of pain: Burning Pain Level: 4 Context: Patient complains of a flareup of her eczema over the past 3 days. Patient states she has been using topical emollients twice a day without improvement of her symptoms. Patient states that occasionally she will have flareups of severe. Patient denies any new foods, medications. Patient states she did recently have a change in her detergent but has since returned back to her normal detergent. Patient complains of burning to her skin and intense pruritus. Patient denies any fever. Patient denies any difficulty breathing. Associated Symptoms: Other - Skin rash, itching. denies: Nonproductive cough, Productive cough Exacerbated by: Denies Relieved by: Denies Similar symptoms previously: Yes Recently seen / treated by doctor: No - ROS ROS below otherwise negative: Yes Systems Reviewed and Negative: Yes All other systems reviewed and negative - CONSTITUTIONAL Constitutional: DENIES: Fever, Chills - EENT EENT: DENIES: Sore Throat, Ear Pain, Eye problems - NEURO Neurology: DENIES: Weakness - CARDIOVASCULAR Cardiovascular: DENIES: Chest pain - RESPIRATORY Respiratory: DENIES: Trouble Breathing, Coughing - GASTROINTESTINAL Gastrointestinal: DENIES: Abdominal Pain, Nausea, Patient vomiting, Black / Bloody Stools - URINARY Urinary: DENIES: Dysuria, Urgency, Frequency - REPRODUCTIVE Reproductive: DENIES: :, Postmenopausal, Abnormal bleeding / discharge - MUSCULOSKELETAL Musculoskeletal: DENIES: Extremity pain - DERM Skin Color: Erythema Skin Problems: Rash Past Medical History - General Information source: Patient - Social History Smoking Status: Current Every Day Smoker Chew tobacco use (# tins/day): No Smoking Education Provided: Yes Frequency of alcohol use: None Drug Abuse: None 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 with: Spouse/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 other Family History: Arthritis, CAD, CVA, Hyperlipidemia, Hypertension Patient has suicidal ideation: No Patient has homicidal ideation: No Renal/ Medical History: Denies: Hx Peritoneal Dialysis Skin Medical History: Reports Hx Eczema Psychiatric Medical History: Reports: Hx Anxiety, Hx Depression Surgical Hx: Negative - Immunizations Immunizations up to date: Yes Hx Diphtheria, Pertussis, Tetanus Vaccination: Yes Vertical Provider Document - CONSTITUTIONAL Agree With Documented VS: Yes Exam Limitations: No Limitations General Appearance: WD/WN, No Apparent Distress - INFECTION CONTROL TRAVEL OUTSIDE OF THE [place] IN LAST 30 DAYS: No - HEENT HEENT: Atraumatic, Normal ENT Exam, Normocephalic - NECK Neck: Normal Inspection, Supple. negative: Lymphadenopathy-Left, Lymphadenopathy-Right - RESPIRATORY Respiratory: Breath Sounds Normal, No Respiratory Distress O2 Sat by Pulse Oximetry: 100 - CARDIOVASCULAR Cardiovascular: Regular Rhythm, No Murmur, Tachycardia - BACK Back: Normal Inspection - MUSCULOSKELETAL/EXTREMETIES Musculoskeletal/Extremeties: MAEW - NEURO Level of Consciousness: Awake, Alert, Appropriate Motor/Sensory: No Motor Deficit - DERM Integumentary: Dry, Rash - Patient with diffuse erythematous rash with dry scaling skin and scattered excoriations Course - Re-evaluation Re-evalutation: 02/11/17 00:46 Patient's tachycardia improved after IV fluid bolus. Patient's erythema markedly improved after dose of steroid and Benadryl. Patient states that itching has improved significantly although has not completely resolved. Consulted with Dr. elkins regarding patient presentation and management. Agrees with longer taper of oral steroids to help with her symptoms. - Vital Signs Vital signs: Temp Pulse Resp BP Pulse Ox 97.7 F 118 H 20 129/70 H 100 02/10/17 21:53 02/10/17 21:53 02/10/17 21:53 02/10/17 21:53 02/10/17 21:53 Discharge - Discharge Clinical Impression: Urticaria Eczema Qualifiers: Eczema type: unspecified Qualified Code(s): L30.9 - Dermatitis, unspecified Condition: Stable Disposition: HOME, SELF-CARE Instructions: Acute Urticaria ([facility]), Atopic Dermatitis (Eczema) ([facility]), Steroid Medication Injection Additional Instructions: Return immediately for any new or worsening symptoms Followup with your primary care provider, call tomorrow to make a followup appointment You should follow-up with an stenciling machine tender for further evaluation Use emollients several times a day to help moisturize skin Prescriptions: Famotidine [Pepcid 20 mg Tablet] 20 mg PO BID #12 tablet Hydroxyzine HCl [Atarax 25 mg Tablet] 1 - 2 tab PO QID #25 tablet Prednisone [Deltasone 5 mg Tablet] 5 mg PO ASDIR PRN #100 tablet PRN Reason: Forms: Smoking Cessation Education, Return to Work Referrals: RYANN ROBERSON DO [Primary Care Provider] - Follow up tomorrow
[2017-02-11] MEDS ORDERED: FAMOTIDINE INJ/PF 20 MG/2 ML SDV IV ONE (00:41)
[2017-02-11 01:16] VITALS: BP 124/74
== END 2017-02-11 01:16 | disposition home or self-care (01) ==
LOC: ER 21:53 → EEVIPCON 21:53 → ER 02-11 01:16
DX: L30.9 Dermatitis, unspecified (principal); L50.9 Urticaria, unspecified; F17.200 Nicotine dependence, unspecified, uncomplicated
CPT/HCPCS: 99283; 96361; 96374; 96375; J1200; J2930; J7030; S0028

== ENCOUNTER 2017-09-06 15:42 | Emergency (ER) | payer SELFPAY ==
[2017-09-06] MEDS ORDERED: DIPHENHYDRAMINE HCL 50 MG/ML VIAL IV ONE (16:31)
[2017-09-06] MEDS ORDERED: METHYLPREDNISOLONE INJ 125 MG/2 ML SDV IV ONE (16:31)
--- NOTE | 2017-09-06 16:34 | ER Document Report ---
ED Medical Screen (RME) - General Chief Complaint: Skin Problem Stated Complaint: SKIN PROBLM Time Seen by Provider: 09/06/17 16:28 Notes: The patient is a 27-year-old female, past medical history chronic eczema, presents with 1 day of an eczema flare. She said that she normally receives a dose of IV Solu-Medrol and Benadryl feels much better. She did get home on 6 days of prednisone and her flare improves. Has not seen a rigger up in [place] for this yet. PE: Diffuse erythematous scaly rash, no oral involvement I have greeted and performed a rapid initial assessment of this patient. A comprehensive ED assessment and evaluation of the patient, analysis of test results and completion of the medical decision making process will be conducted by additional ED providers. TRAVEL OUTSIDE OF THE [place] IN LAST 30 DAYS: No - Related Data Allergies/Adverse Reactions: citric acid [Citric Acid] Allergy (Verified 09/06/17 15:45) codeine [Codeine] Allergy (Verified 09/06/17 15:45) latex Allergy (Verified 09/06/17 15:45) red dye [Red Dye] Allergy (Verified 09/06/17 15:45) Home Medications: hydroxizine, buspor, tylenol. Past Medical History - Social History Chew tobacco use (# tins/day): No Frequency of alcohol use: None Drug Abuse: None Renal/ Medical History: Denies: Hx Peritoneal Dialysis Skin Medical History: Reports Hx Eczema Psychiatric Medical History: Reports: Hx Anxiety, Hx Depression - Immunizations Immunizations up to date: Yes Hx Diphtheria, Pertussis, Tetanus Vaccination: Yes Physical Exam - Vital signs Vitals: Temp Pulse Resp BP Pulse Ox 97.9 F 98 18 121/78 100 09/06/17 15:47 09/06/17 15:47 09/06/17 15:47 09/06/17 15:47 09/06/17 15:47 Course - Vital Signs Vital signs: Temp Pulse Resp BP Pulse Ox 97.9 F 98 18 121/78 100 09/06/17 15:47 09/06/17 15:47 09/06/17 15:47 09/06/17 15:47 09/06/17 15:47 Doctor's Discharge - Discharge Referrals: RYANN ROBERSON DO [Primary Care Provider] - Follow up as needed
[2017-09-06] MEDS ORDERED: HYDROXYZINE HCL INJ 50 MG/1 ML VIAL IM ONE (17:51)
[2017-09-06] MEDS ORDERED: NORMAL SALINE 1000 ML 1,000 ML IV PRN (17:52)
[2017-09-06] MEDS ORDERED: NORMAL SALINE 1000 ML 1,000 ML IV ONE (17:52)
--- NOTE | 2017-09-06 17:54 | ER Document Report ---
ED Skin Rash/Insect Bite/Abscs - General Chief Complaint: Skin Problem Stated Complaint: SKIN PROBLM Time Seen by Provider: 09/06/17 16:28 Mode of Arrival: Ambulatory Information source: Patient Notes: Chief complaint: Diffuse rash History of complain:( obtained from----patient) 27 years old female with a history of allergic rash, ate something that triggered the eczema having now diffuse rash throughout the whole body with itching and scaling. Therefore concerned and came to the ED. No fever chills or other constitutional symptoms Onset: As above Duration: Gradual Severity: Severe Quality: Itching Context: Unknown allergen Exacerbating factor and relieving factors: Unknown allergen REVIEW OF SYSTEMS: CONSTITUTIONAL : Denies fever, chills, or sweats. Denies recent illness. EENT: Denies eye, ear, throat, or mouth pain or symptoms. Denies nasal or sinus congestion or discharge. Denies throat, tongue, or mouth swelling or difficulty swallowing. CARDIOVASCULAR: Denies chest pain. Denies palpitations or racing or irregular heart beat. Denies ankle edema. RESPIRATORY: Denies cough, cold, or chest congestion. Denies shortness of breath, difficulty breathing, or wheezing. GASTROINTESTINAL: Denies distention. Denies nausea, vomiting, or diarrhea. Denies blood in vomitus, stools, or per rectum. Denies black, tarry stools. Denies constipation. GENITOURINARY: Denies difficulty urinating, painful urination, burning, frequency, blood in urine, or discharge. FEMALE GENITOURINARY: Denies vaginal bleeding, heavy or abnormal periods, irregular periods. Denies vaginal discharge or odor. MUSCULOSKELETAL: Denies back or neck pain or stiffness. Denies joint pain or swelling. SKIN: Denies rash, lesions or sores. HEMATOLOGIC : Denies easy bruising or bleeding. LYMPHATIC: Denies swollen, enlarged glands. NEUROLOGICAL: Denies confusion or altered mental status. Denies passing out or loss of consciousness. Denies dizziness or lightheadedness. Denies headache. Denies weakness or paralysis or loss of use of either side. Denies problems with gait or speech. Denies sensory loss, numbness, or tingling. Denies seizures. PSYCHIATRIC: Denies anxiety or stress. Denies depression, suicidal ideation, or homicidal ideation. ALL OTHER SYSTEMS REVIEWED AND NEGATIVE. PHYSICAL EXAMINATION: GENERAL: Well-appearing, well-nourished and in no acute distress. HEAD: Atraumatic, normocephalic. EYES: Pupils equal round and reactive to light, extraocular movements intact, conjunctiva are normal. ENT: Nares patent, oropharynx clear without exudates. Moist mucous membranes. NECK: Normal range of motion, supple without lymphadenopathy LUNGS: Breath sounds clear to auscultation bilaterally and equal. No wheezes rales or rhonchi. HEART: Regular rate and rhythm without murmurs ABDOMEN: Soft, nontender, nondistended abdomen. No guarding, no rebound. No masses appreciated. Examination of genitals-deferred Musculoskeletal: Normal range of motion, no pitting or edema. No cyanosis. NEUROLOGICAL: Cranial nerves grossly intact. Normal speech, normal gait. Normal sensory, motor exams PSYCH: Normal mood, normal affect. SKIN: Diffuse scaly erythematous dry rash was noted throughout the whole body including face. Dictation was performed using [employer] voice recognition software TRAVEL OUTSIDE OF THE [place] IN LAST 30 DAYS: No - HPI Notes: Dictated - Related Data Allergies/Adverse Reactions: citric acid [Citric Acid] Allergy (Verified 09/06/17 15:45) codeine [Codeine] Allergy (Verified 09/06/17 15:45) latex Allergy (Verified 09/06/17 15:45) red dye [Red Dye] Allergy (Verified 09/06/17 15:45) Home Medications: hydroxizine, buspor, tylenol. Past Medical History - Social History Smoking Status: Never Smoker Chew tobacco use (# tins/day): No Frequency of alcohol use: None Drug Abuse: None Family History: Arthritis, CAD, CVA, Hyperlipidemia, Hypertension Patient has suicidal ideation: No Patient has homicidal ideation: No - Past Medical History Cardiac Medical History: Denies: None, Hx Atrial Fibrillation, Hx Congestive Heart Failure, Hx Coronary Artery Disease, Hx DVT, Hx Heart Attack, Hx Hypercholesterolemia, Hx Hypertension, Hx Peripheral Vascular Disease, Hx Pulmonary Embolism, Hx Heart Murmur, Other Pulmonary Medical History: Denies: None, Hx Asthma, Hx Bronchitis, Hx COPD, Hx Pneumonia, Hx Intubation , Hx Respiratory Failure, Hx Sleep Apnea, Hx Tuberculosis, Other EENT Medical History: Denies: None, Eyes, Ears, Nose, Throat, Other Neurological Medical History: Denies: None, Hx Cerebrovascular Accident, Hx Migraine, Hx Seizures, Other Endocrine Medical History: Denies: None, Hx Diabetes Mellitus Type 1, Hx Diabetes Mellitus Type 2, Hx Graves' Disease, Hx Hyperthyroidism, Hx Hypothyroidism, Other Renal/ Medical History: Denies: Hx Peritoneal Dialysis Skin Medical History: Reports Hx Eczema Psychiatric Medical History: Reports: Hx Anxiety, Hx Depression - Immunizations Immunizations up to date: Yes Hx Diphtheria, Pertussis, Tetanus Vaccination: Yes Review of Systems - Review of Systems Notes: Dictated Physical Exam - Vital signs Vitals: Temp Pulse Resp BP Pulse Ox 97.9 F 98 18 121/78 100 09/06/17 15:47 09/06/17 15:47 09/06/17 15:47 09/06/17 15:47 09/06/17 15:47 - Notes Notes: Dictated Course - Re-evaluation Re-evalutation: 09/06/17 20:33 Given IV fluid and Solu-Medrol with clinical improvement discharge home - Vital Signs Vital signs: Temp Pulse Resp BP Pulse Ox 97.9 F 98 18 121/78 100 09/06/17 15:47 09/06/17 15:47 09/06/17 15:47 09/06/17 15:47 09/06/17 15:47 - Laboratory Result Diagrams: 09/06/17 18:05 Laboratory results interpreted by me: 09/06/17 18:05 Eosinophils % 8.2 H Discharge - Discharge Clinical Impression: Acute photoallergic dermatitis, Dehydration Condition: Fair Disposition: HOME, SELF-CARE Instructions: Atopic Dermatitis (Eczema) ([facility]) Additional Instructions: Follow-up with the human resources administrator Medicine that I recommended is DUPIXENT Prescriptions: Montelukast Sodium [Singulair 10 mg Tablet] 10 mg PO QHS #30 tablet Hydroxyzine HCl 10 mg PO QID #60 tablet Prednisone 10 mg PO ASDIR PRN 12 Days #1 tab.ds.pk PRN Reason: Referrals: RYANN ROBERSON DO [NO LOCAL MD] - Follow up as needed
[2017-09-06 18:19] LABS: ABSOLUTE EOSINOPHILS # (AUTO) 0.6 10^3/uL (0.0-0.6); ABSOLUTE LYMPHOCYTES (AUTO) 1.8 10^3/uL (0.5-4.7); ABSOLUTE MONOCYTES (AUTO) 0.2 10^3/uL (0.1-1.4); ABSOLUTE NEUT (AUTO) 4.4 10^3/uL (1.7-8.2); BASOPHILS % (AUTO) 0.6 % (0-2); EOSINOPHILS % (AUTO) 8.2 % (0-6); HEMATOCRIT 40.1 % (36.0-47.0); HEMOGLOBIN 13.6 g/dL (12.0-15.5); LYMPHOCYTES % (AUTO) 25.1 % (13-45); MEAN CORPUSCULAR HEMOGLOBIN 29.3 pg (27.0-33.4); MEAN CORPUSCULAR VOLUME 86 fl (80-97); MONOCYTES % (AUTO) 3.4 % (3-13); PLATELET COUNT 263 10^3/uL (150-450); RED BLOOD COUNT 4.65 10^6/uL (3.72-5.28); RED CELL DISTRIBUTION WIDTH 13.2 % (11.5-14.0); SEGMENTED NEUTROPHILS % (AUTO) 62.7 % (42-78); TOTAL CELLS COUNTED % (AUTO) 100 %
[2017-09-06 18:59] LABS: ERYTHROCYTE SEDIMENTATION RATE 9 mm/hr (0-20)
[2017-09-06 20:59] VITALS: BP 127/61
== END 2017-09-06 21:00 | disposition home or self-care (01) ==
LOC: ER 15:42
DX: L56.1 Drug photoallergic response (principal); T50.905A Adverse effect of unspecified drugs, medicaments and biological substances, initial encounter; E86.0 Dehydration; Z91.018 Allergy to other foods; Z88.5 Allergy status to narcotic agent; Z91.040 Latex allergy status; Z91.048 Other nonmedicinal substance allergy status
CPT/HCPCS: 99283; 96372; 96361; 96374; 96375; 36415; 85025; 85652; J1200; J3490; J2930; J7030

== ENCOUNTER 2018-12-17 13:41 | Emergency (ER) | payer SELFPAY ==
--- NOTE | 2018-12-17 14:39 | ER Document Report ---
ED Medical Screen (RME) - General Chief Complaint: Vomiting Stated Complaint: VOMITING/WEAKNESS Time Seen by Provider: 12/17/18 14:35 Primary Care Provider: BAYRON BARBER PA-C [Primary Care Provider] - Follow up as needed Mode of Arrival: Ambulatory Information source: Patient Notes: 28-year-old female presented to ED for vomiting multiple times from last night to now. Nominal cramping since she has been throwing up. Denies any diarrhea or fevers. She states [id number]-old daughter was sick earlier in the week with diarrhea and vomiting. Nobody else in the family has been sick. Smokes less than a pack a day drinks weekly no illicit drugs. 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 She states she kept the rice take down about 2 hours ago and if she sips water she can keep that down. We will get blood and urine give her some Zofran and see how she does. I have greeted and performed a rapid initial assessment of this patient. A comprehensive ED assessment and evaluation of the patient, analysis of test results and completion of medical decision making process will be conducted by an additional ED providers. TRAVEL OUTSIDE OF THE [place] IN LAST 30 DAYS: No - Related Data Allergies/Adverse Reactions: citric acid [Citric Acid] Allergy (Verified 12/17/18 14:34) codeine [Codeine] Allergy (Verified 12/17/18 14:34) latex Allergy (Verified 12/17/18 14:34) red dye [Red Dye] Allergy (Verified 12/17/18 14:34) Past Medical History - Past Medical History Cardiac Medical History: Denies: Hx Atrial Fibrillation, Hx Congestive Heart Failure, Hx Coronary Artery Disease, Hx DVT, Hx Heart Attack, Hx Hypercholesterolemia, Hx Hypertension, Hx Peripheral Vascular Disease, Hx Pulmonary Embolism, Hx Heart Murmur Pulmonary Medical History: Denies: Hx Asthma, Hx Bronchitis, Hx COPD, Hx Pneumonia, Hx Intubation, Hx Respiratory Failure, Hx Sleep Apnea, Hx Tuberculosis Neurological Medical History: Denies: Hx Cerebrovascular Accident, Hx Migraine, Hx Seizures Endocrine Medical History: Denies: Hx Diabetes Mellitus Type 1, Hx Diabetes Mellitus Type 2, Hx Graves' Disease, Hx Hyperthyroidism, Hx Hypothyroidism Renal/ Medical History: Denies: Hx Peritoneal Dialysis Skin Medical History: Reports Hx Eczema Psychiatric Medical History: Reports: Hx Anxiety, Hx Depression - Immunizations Immunizations up to date: Yes Hx Diphtheria, Pertussis, Tetanus Vaccination: Yes Physical Exam - Vital signs Vitals: Temp Pulse Resp BP Pulse Ox 97.7 F 101 H 18 140/75 H 96 12/17/18 13:50 12/17/18 13:50 12/17/18 13:50 12/17/18 13:50 12/17/18 13:50 Course - Vital Signs Vital signs: Temp Pulse Resp BP Pulse Ox 97.7 F 101 H 18 140/75 H 96 12/17/18 13:50 12/17/18 13:50 12/17/18 13:50 12/17/18 13:50 12/17/18 13:50 Doctor's Discharge - Discharge Referrals: BAYRON BARBER PA-C [Primary Care Provider] - Follow up as needed
[2018-12-17 15:55] LABS: ABSOLUTE EOSINOPHILS # (AUTO) 0.1 10^3/uL (0.0-0.6); ABSOLUTE LYMPHOCYTES (AUTO) 2.7 10^3/uL (0.5-4.7); ABSOLUTE MONOCYTES (AUTO) 0.6 10^3/uL (0.1-1.4); BASOPHILS % (AUTO) 0.4 % (0-2); HEMOGLOBIN 14.4 g/dL (12.0-15.5); LYMPHOCYTES % (AUTO) 26.1 % (13-45); MEAN CORPUSCULAR HEMOGLOBIN 29.5 pg (27.0-33.4); MEAN CORPUSCULAR HGB CONC 33.5 g/dL (32.0-36.0); MEAN CORPUSCULAR VOLUME 88 fl (80-97); PLATELET COUNT 317 10^3/uL (150-450); RED BLOOD COUNT 4.89 10^6/uL (3.72-5.28); RED CELL DISTRIBUTION WIDTH 13.1 % (11.5-14.0); SEGMENTED NEUTROPHILS % (AUTO) 66.5 % (42-78); TOTAL CELLS COUNTED % (AUTO) 100 %; WHITE BLOOD COUNT 10.5 10^3/uL (4.0-10.5)
[2018-12-17 16:02] LABS: APPEARANCE,URINE SLIGHTLY-CLOUDY; BILIRUBIN,URINE NEGATIVE (NEGATIVE); COLOR,URINE YELLOW; GLUCOSE, URINE NEGATIVE (NEGATIVE); KETONES,URINE TRACE mg/dL (NEGATIVE); PROTEIN,URINE 30 mg/dL (NEGATIVE); UROBILINOGEN,URINE NEGATIVE mg/dL (<2.0)
[2018-12-17 16:31] LABS: ALBUMIN 4.8 g/dL (3.5-5.0); ALKALINE PHOSPHATASE 60 U/L (38-126); ANION GAP 12 (5-19); ASPARTATE AMINO TRANSFERASE 28 U/L (14-36); BILIRUBIN,DIRECT 0.1 mg/dL (0.0-0.4); BILIRUBIN,TOTAL 0.5 mg/dL (0.2-1.3); BLOOD UREA NITROGEN 11 mg/dL (7-20); CALCIUM 9.5 mg/dL (8.4-10.2); CARBON DIOXIDE 28 mmol/L (22-30); CHLORIDE 102 mmol/L (98-107); GLUCOSE 81 mg/dL (75-110); POTASSIUM 4.1 mmol/L (3.6-5.0); TOTAL PROTEIN 8.3 g/dL (6.3-8.2)
--- NOTE | 2018-12-17 17:27 | ER Document Report ---
ED General - General Chief Complaint: Nausea/Vomiting Stated Complaint: VOMITING/WEAKNESS Time Seen by Provider: 12/17/18 14:35 Primary Care Provider: DEION DELEON MD [ACTIVE STAFF] - Follow up as needed BAYRON BARBER PA-C [Primary Care Provider] - Follow up as needed Mode of Arrival: Ambulatory TRAVEL OUTSIDE OF THE [place] IN LAST 30 DAYS: No - HPI Notes: Patient is a 28-year-old female no significant past medical history who presents complaining of nausea and vomiting with intermittent abdominal cramping that began at 1 AM. Patient states that she has not vomited for the past 5 to 6 hours and is feeling much better. She has no discomfort or cramping remaining. She is urinating normally. She has no vaginal discharge, odor, or bleeding. No abdominal surgical history. Patient was exposed to a GI illness with her recently. Denies any headache, fever, neck pain, URI, sore throat, chest pain, palpitations, syncope, cough, shortness of breath, wheeze, dyspnea, diarrhea, melena, hematochezia, urinary retention, dysuria, hematuria, back pain, or rash. - Related Data Allergies/Adverse Reactions: Bleach (Sodium Hypochlorite) Allergy (Verified 12/17/18 15:35) citric acid [Citric Acid] Allergy (Verified 12/17/18 14:34) codeine [Codeine] Allergy (Verified 12/17/18 14:34) latex Allergy (Verified 12/17/18 14:34) red dye [Red Dye] Allergy (Verified 12/17/18 14:34) cats Allergy (Uncoded 12/17/18 15:35) Past Medical History - General Information source: Patient - Social History Smoking Status: Current Every Day Smoker Chew tobacco use (# tins/day): No Frequency of alcohol use: Social Drug Abuse: None Family History: Arthritis, CAD, CVA, Hyperlipidemia, Hypertension Patient has suicidal ideation: No Patient has homicidal ideation: No - Past Medical History Cardiac Medical History: Denies: Hx Atrial Fibrillation, Hx Congestive Heart Failure, Hx Coronary Artery Disease, Hx DVT, Hx Heart Attack, Hx Hypercholesterolemia, Hx Hypertension, Hx Peripheral Vascular Disease, Hx Pulmonary Embolism, Hx Heart Murmur Pulmonary Medical History: Denies: Hx Asthma, Hx Bronchitis, Hx COPD, Hx Pneumonia, Hx Intubation, Hx Respiratory Failure, Hx Sleep Apnea, Hx Tuberculosis Neurological Medical History: Denies: Hx Cerebrovascular Accident, Hx Migraine, Hx Seizures Endocrine Medical History: Denies: Hx Diabetes Mellitus Type 1, Hx Diabetes Mellitus Type 2, Hx Graves' Disease, Hx Hyperthyroidism, Hx Hypothyroidism Renal/ Medical History: Denies: Hx Peritoneal Dialysis Skin Medical History: Reports Hx Eczema Psychiatric Medical History: Reports: Hx Anxiety, Hx Depression - Immunizations Immunizations up to date: Yes Hx Diphtheria, Pertussis, Tetanus Vaccination: Yes Review of Systems - Review of Systems -: Yes All other systems reviewed and negative Physical Exam - Vital signs Vitals: Temp Pulse Resp BP Pulse Ox 97.7 F 101 H 18 140/75 H 96 12/17/18 13:50 12/17/18 13:50 12/17/18 13:50 12/17/18 13:50 12/17/18 13:50 - Notes Notes: PHYSICAL EXAMINATION: GENERAL: Well-appearing, well-nourished and in no acute distress. HEAD: Atraumatic, normocephalic. EYES: Pupils equal round and reactive to light, extraocular movements intact, sclera anicteric, conjunctiva are normal. ENT: Nares patent and without discharge. oropharynx clear without exudates. No tonsilar hypertrophy or erythema. Moist mucous membranes. NECK: Normal range of motion, supple without lymphadenopathy LUNGS: Breath sounds clear to auscultation bilaterally and equal. No wheezes r ales or rhonchi. HEART: Regular rate and rhythm without murmurs, rubs, gallops. ABDOMEN: Soft, nontender, nondistended abdomen. No guarding, no rebound. normal bowel sounds present. No CVA tenderness bilaterally. Hammond negative. No tenderness at McBurney's point. Musculoskeletal: FROM to passive/active. Strength 5+/5. Extremities: No cyanosis, clubbing, or edema b/l. Peripheral pulses 2+. Capillary refill less than 3 seconds. NEUROLOGICAL: Normal speech, normal gait. PSYCH: Normal mood, normal affect. SKIN: Warm, Dry, normal turgor, no rashes or lesions noted. Course - Re-evaluation Re-evalutation: 12/17/18 Patient is an afebrile, well-hydrated, 28-year-old female who presents with nausea and vomiting, since resolved, suspect viral. Vitals are acceptable without significant tachycardia, tachypnea, or hypoxia. PE is otherwise unremarkable. Patient is nontoxic-appearing and is tolerating p.o. without difficulty. Patient's abdomen is soft and nontender throughout. She has not had any episodes of emesis throughout her stay. Labs are unremarkable. Low suspicion/risk for acute appendicitis, bowel obstruction, acute cholecystitis, acute cholangitis, perforated diverticulitis, incarcerated hernia, pancreatitis, perforated ulcer, peritonitis, sepsis, pelvic inflammatory disease, ectopic , tubo-ovarian abscess, ovarian torsion, or other systemic emergent condition at this time. Patient is aware that her condition can change from initial presentation and she needs to monitor symptoms closely and seek medical attention if any acute changes. Conservative measures otherwise for symptoms. Recheck with OBGYN in 1-2 days. Recheck with your PCM in 2-3 days. Consider consult with a operator. Return to the ED with any worsening/concerning symptoms otherwise as reviewed in discharge. Patient is in agreement. - Vital Signs Vital signs: Temp Pulse Resp BP Pulse Ox 97.7 F 101 H 18 140/75 H 96 12/17/18 13:50 12/17/18 13:50 12/17/18 13:50 12/17/18 13:50 12/17/18 13:50 - Laboratory Result Diagrams: 12/17/18 15:31 12/17/18 15:31 Laboratory results interpreted by me: 12/17/18 12/17/18 15:31 15:31 Total Protein 8.3 H Urine Protein 30 H Urine Ketones TRACE H Urine Ascorbic Acid 40 H Discharge - Discharge Clinical Impression: Nausea and vomiting Qualifiers: Vomiting type: unspecified Vomiting Intractability: non-intractable Qualified Code(s): R11.2 - Nausea with vomiting, unspecified Condition: Stable Disposition: HOME, SELF-CARE Instructions: Vomiting ([facility]) Additional Instructions: Maintain adequate fluid and food intake Zofran as needed tylenol if needed Monitor for any worsening symptoms Make sure you are staying hydrated enough to urinate and have normal BM's Recheck with your PCM in 2-3 days Consider consult with Gastroenterology for ongoing/worsening symptoms Return to the ED with any worsening symptoms and/or development of fever, headache, chest pain, palpitations, syncope, shortness of breath, trouble breathing, abdominal pain, n/v/d, blood in stool/urine, weakness, or other worsening symptoms that are concerning to you. Prescriptions: Ondansetron [Zofran Odt 4 mg Tablet] 1 - 2 tab PO Q4H PRN #15 tab.rapdis PRN Reason: For Nausea/Vomiting Forms: Elevated Blood Pressure Referrals: BAYRON BARBER PA-C [Primary Care Provider] - Follow up as needed DEION DELEON MD [ACTIVE STAFF] - Follow up as needed
[2018-12-17 17:58] VITALS: BP 137/83
== END 2018-12-17 17:56 | disposition home or self-care (01) ==
LOC: ER 13:41
DX: R11.2 Nausea with vomiting, unspecified (principal); R53.1 Weakness; F17.200 Nicotine dependence, unspecified, uncomplicated; Z88.6 Allergy status to analgesic agent; Z91.02 Food additives allergy status; Z91.040 Latex allergy status; Z91.048 Other nonmedicinal substance allergy status
CPT/HCPCS: 36415; 80053; 81001; 83690; 84702; 85025; 99284